=== PATIENT | female | born 1950 | race Caucasian/White ===

== ENCOUNTER 2020-06-08 07:41 | Outpatient (REF) | payer MEDICARE, MEDICAID, SELFPAY ==
[2020-06-08 08:31] LABS: MANUAL DIFF FLAG NO
[2020-06-08 08:38] LABS: Basophils Absolute Auto 0.1 X10*3/uL (0.0-0.2); Basophils Percent Auto 0.8 % (0-2); Eosinophils Absolute Auto 0.2 X10*3/uL (0.0-0.4); Eosinophils Percent Auto 2.1 % (0-4); Hematocrit 42.3 % (37-47); Hemoglobin 13.6 g/dl (12.0-16.0); Imm Gran Abs Auto 0.03 X10*3/uL (0.00-0.03); Imm Gran Pct Auto 0.4 % (0.0-0.4); Lymphocytes Absolute Auto 1.5 X10*3/uL (1.2-4.9); Lymphocytes Percent Auto 21.3 % (20-40); Mean Corpuscular HGB Conc 32.2 g/dl (31.0-35.0); Mean Corpuscular Hemoglobin 26.9 pg (27.0-33.0); Mean Corpuscular Volume 83.8 fL (80-98); Mean Platelet Volume 10.3 fL (9.4-12.3); Monocytes Absolute Auto 0.8 X10*3/uL (0.1-1.2); Monocytes Percent Auto 11.1 % (2-11); Neutrophils Absolute Auto 4.6 X10*3/uL (2.0-8.3); Neutrophils Percent Auto 64.3 % (45-73); Platelet Count 285 X10*3/uL (160-400); Red Blood Count 5.05 X10*6/uL (4.20-5.50); Red Cell Distribution Width 14.6 % (11.0-16.0); White Blood Count 7.1 X10*3/uL (4.8-10.8)
[2020-06-08 08:46] LABS: Estimated Average Glucose 134 mg/dL; Hemoglobin A1c % 6.3 %
[2020-06-08 09:14] LABS: Alanine Aminotransferase 31 U/L (0-31); Albumin Level 4.3 g/dL (3.5-5.0); Alkaline Phosphatase 94 U/L (39-117); Anion Gap 15 (12-20); Aspartate Amino Transferase 27 U/L (5-31); Bilirubin Total 0.7 mg/dL (0.0-1.0); Blood Urea Nitrogen 17 mg/dL (9-16); Calcium 9.3 mg/dL (8.4-10.2); Carbon Dioxide 27 mmol/L (22-29); Chloride 104 mmol/L (96-108); Cholesterol 201 mg/dL; Estimated Glomerular Filt Rate > 60; Glucose Random 98 mg/dL (60-115); HDL Cholesterol 59 mg/dL; LDL Cholesterol Calculated 122 mg/dl; Potassium 4.2 mmol/L (3.3-5.1); Sodium 142 mmol/L (135-145); Total Protein 7.4 g/dL (6.5-8.0); Triglycerides 102 mg/dL
[2020-06-08 09:26] LABS: Free T4 (Free Thyroxine) 1.09 ng/dL (0.71-1.85); Thyroid Stimulating Hormone 1.58 uIU/mL (0.32-4.0); Vitamin D 25-OH Total 31.7 ng/mL (>30)
[2020-06-08 09:58] LABS: Folate > 20.0 ng/mL (> or = 4.0); Vitamin B12 733 pg/mL (200-900)
== END 2020-06-08 07:42 | disposition home or self-care (01) ==
LOC: HO.LAB 07:41
PROVIDERS: PCP Internal Medicine; Visit Provider Internal Medicine
DX: R73.02 Impaired glucose tolerance (oral) (principal); I10 Essential (primary) hypertension; E78.00 Pure hypercholesterolemia, unspecified
CPT/HCPCS: 36415; 80053; 80061; 82306; 82607; 82746; 83036; 84439; 84443; 85025

== ENCOUNTER 2020-10-17 06:11 | Outpatient (REF) | payer MEDICARE, MEDICAID, SELFPAY ==
[2020-10-17 08:11] LABS: MANUAL DIFF FLAG NO
[2020-10-17 08:24] LABS: Basophils Absolute Auto 0.1 X10*3/uL (0.0-0.2); Basophils Percent Auto 0.7 % (0-2); Eosinophils Absolute Auto 0.2 X10*3/uL (0.0-0.4); Eosinophils Percent Auto 1.8 % (0-4); Hematocrit 43.6 % (37-47); Imm Gran Abs Auto 0.03 X10*3/uL (0.00-0.03); Imm Gran Pct Auto 0.4 % (0.0-0.4); Lymphocytes Absolute Auto 1.9 X10*3/uL (1.2-4.9); Lymphocytes Percent Auto 22.4 % (20-40); Mean Corpuscular HGB Conc 32.1 g/dl (31.0-35.0); Mean Corpuscular Hemoglobin 26.2 pg (27.0-33.0); Mean Corpuscular Volume 81.6 fL (80-98); Mean Platelet Volume 11.3 fL (9.4-12.3); Monocytes Absolute Auto 0.9 X10*3/uL (0.1-1.2); Monocytes Percent Auto 10.1 % (2-11); Neutrophils Absolute Auto 5.4 X10*3/uL (2.0-8.3); Neutrophils Percent Auto 64.6 % (45-73); Platelet Count 289 X10*3/uL (160-400); Red Blood Count 5.34 X10*6/uL (4.20-5.50); Red Cell Distribution Width 14.5 % (11.0-16.0); White Blood Count 8.4 X10*3/uL (4.8-10.8)
[2020-10-17 08:38] LABS: Estimated Average Glucose 137 mg/dL; Hemoglobin A1c % 6.4 %
[2020-10-17 09:02] LABS: Alanine Aminotransferase 35 U/L (0-31); Albumin Level 4.4 g/dL (3.5-5.0); Alkaline Phosphatase 86 U/L (39-117); Anion Gap 17 (12-20); Aspartate Amino Transferase 35 U/L (5-31); Bilirubin Total 0.4 mg/dL (0.0-1.0); Blood Urea Nitrogen 15 mg/dL (9-16); Calcium 9.7 mg/dL (8.4-10.2); Carbon Dioxide 22 mmol/L (22-29); Chloride 106 mmol/L (96-108); Estimated Glomerular Filt Rate > 60; Glucose Random 116 mg/dL (60-115); Potassium 4.9 mmol/L (3.3-5.1); Sodium 140 mmol/L (135-145); Total Protein 7.8 g/dL (6.5-8.0)
== END 2020-10-17 06:12 | disposition home or self-care (01) ==
LOC: HO.LAB 06:11
PROVIDERS: PCP Internal Medicine; Visit Provider Internal Medicine
DX: R73.02 Impaired glucose tolerance (oral) (principal)
CPT/HCPCS: 36415; 80053; 83036; 85025

== ENCOUNTER 2020-12-20 11:40 | Outpatient (REF) | payer MEDICARE, MEDICAID, SELFPAY ==
--- NOTE | ~2020-12-20 | MM_ITS ---
EXAMINATION: MM SCREENING DIGITAL BREAST TOMOSYNTHESIS, BILATERAL CLINICAL INFORMATION: Screening. Asymptomatic. The lifetime risk of breast cancer based on the Tyrer-Cuzick Model is 4%. COMPARISON: Mammography: 12/10/2019, 04/28/2018, 04/23/2017 TECHNIQUE: Digital breast tomosynthesis is performed in both the craniocaudal and mediolateral oblique views along with computer-aided detection (CAD). Synthesized 2D images are generated from the tomosynthesis. FINDINGS: There are scattered areas of fibroglandular density (ACR BI-RADS breast composition Category b). There are no significant masses, abnormal calcifications, or other abnormalities. Parenchymal pattern is similar to prior studies. Small intramammary node again seen posterior upper outer left breast. The skin contours are smooth. MM/MM tomosynthesis screening BI IMPRESSION: No mammographic evidence of malignancy. ASSESSMENT: BI-RADS 1: Negative RECOMMENDATION: Routine annual mammography screening. This patient's information was entered into a reminder system with a target due date for their next mammogram.
== END 2020-12-20 11:41 | disposition home or self-care (01) ==
LOC: HO.MAMMO 11:40
PROVIDERS: PCP Internal Medicine; Visit Provider Internal Medicine
DX: Z12.31 Encounter for screening mammogram for malignant neoplasm of breast (principal)
CPT/HCPCS: 77063; 77067

== ENCOUNTER 2021-02-16 12:07 | Outpatient (REF) | payer MEDICARE, MEDICAID, SELFPAY ==
--- NOTE | ~2021-02-16 | XR_ITS ---
EXAMINATION: XR SHOULDER, RIGHT CLINICAL INFORMATION: Pain COMPARISON: None TECHNIQUE: AP external rotation, Grashey, scapular Y, and axillary views of the right shoulder. FINDINGS: Bone alignment is normal. No fracture or dislocation is seen. The glenohumeral joint is normal. There is arthritis at the acromioclavicular joint. There is a small soft tissue calcification adjacent to the greater tuberosity suggestive of calcific tendinitis or bursitis. XR/XR shoulder RT min 2V IMPRESSION: Arthritis at the acromioclavicular joint and small soft tissue calcification adjacent to the greater tuberosity.
== END 2021-02-16 12:08 | disposition home or self-care (01) ==
LOC: HO.XRAY 12:07
PROVIDERS: PCP Internal Medicine; Visit Provider Nurse Practitioner Family
DX: M25.511 Pain in right shoulder (principal)
CPT/HCPCS: 73030

== ENCOUNTER 2021-04-22 04:51 | Emergency (ER) | payer MEDICARE, MEDICAID, SELFPAY ==
--- NOTE | ~2021-04-22 | CT_ITS ---
EXAMINATION: CT HEAD WITHOUT CONTRAST CLINICAL INFORMATION: Trauma COMPARISON: October 09, 2013 TECHNIQUE: Contiguous axial imaging was performed from the skull base to vertex without intravenous administration of contrast. This CT examination was performed using dose optimization techniques as appropriate, variously including the following: *Automated exposure control *Adjustment of mA and/or kV according to patient size (this includes techniques or standardized protocols for targeted exams where dose is matched to indication/reason for exam; i.e. extremities or head) *Use of iterative reconstruction technique DLP: 668.87 mGy-cm FINDINGS: There is no evidence of acute intracranial hemorrhage or territorial infarction. No abnormal mass effect or midline shift is seen. Hdez to white matter differentiation is well preserved. No extra-axial fluid collections are identified. The ventricles are normal in size. There is no abnormal attenuation within the brain parenchyma. The osseous structures are normal. The mastoid air cells and visualized portions of the paranasal sinuses are well aerated. There is some edema and linn seen about the right posterior parietal/occipital region. CT/CT head/brain wo con IMPRESSION: No acute intracranial pathology.
--- NOTE | ~2021-04-22 | CT_ITS ---
EXAMINATION: CT CERVICAL SPINE WITHOUT CONTRAST CLINICAL INFORMATION: Trauma. COMPARISON: None TECHNIQUE: Helical CT scan of the cervical spine was obtained without administration of any contrast. Multiplanar reconstructed images were also obtained. This CT examination was performed using dose optimization techniques as appropriate, variously including the following: *Automated exposure control *Adjustment of mA and/or kV according to patient size (this includes techniques or standardized protocols for targeted exams where dose is matched to indication/reason for exam; i.e. extremities or head) *Use of iterative reconstruction technique DLP: 460.20 mGy-cm FINDINGS: Nonspecific straightening of the cervical spine is noted with superimposed moderate multilevel degenerative spondylosis. Facet joint arthritic changes are noted bilaterally. Osteoarthrosis is noted at the atlantoaxial joint. Uncovertebral hypertrophic changes are also present. There is no evidence of acute cervical spine fracture. Vertebral bodies remain normal in height, intervertebral disc spaces are preserved, and alignment is anatomic. No prevertebral or paravertebral soft tissue abnormality is identified. Limited assessment of the lung apices is unremarkable. Incidental note is made of multinodular left lobe of the thyroid gland. CT/CT cervical spine wo con IMPRESSION: No CT evidence of acute cervical spine fracture or traumatic subluxation. Multinodular left lobe of the thyroid gland.
--- NOTE | ~2021-04-22 | XR_ITS ---
EXAMINATION: XR ELBOW, LEFT CLINICAL INFORMATION: Trauma. COMPARISON: None TECHNIQUE: AP, lateral, and oblique views of the left elbow. FINDINGS: The bony alignments are intact. The cortices are intact. Mild osteoarthrosis is noted at the humeroulnar joint. Incidental note is made of subtle focal expansile nonaggressive lesion involving the proximal part of the left radius. Soft tissues are unremarkable. No evidence of any effusion. XR/XR elbow LT min 3V IMPRESSION: 1. No radiographic evidence of any displaced fracture, subluxation or dislocation is seen at the left elbow. 2. Incidental note is made of mild osteoarthrosis of the humeroulnar joint. 3. Indeterminate subtle focal expansile nonaggressive lesion involving the proximal part of the left radius. Clinical, lab correlation as well as follow-up imaging as appropriate is recommended.
[2021-04-22 04:53] VITALS: BP 153/84; PULSE 83; RESP 16; TEMP 36.8; O2SAT 99; BMI 31.3
--- NOTE | 2021-04-22 07:40 | ED_ITS ---
HPI - Head Injury General Chief complaint: Fall Stated complaint: fall head inj Time Seen by Provider: 04/22/21 06:48 Source: patient Limitations: no limitations History of Present Illness HPI Narrative: this is a 70 years old the female was changing a light bulb at 04:00 a fell to the ground she is complaining of headache she sustained a laceration on the scalp, she denies any neck pain chest wall pain abdominal pain, no L MD Complaint: head injury Onset (ago): hour(s) (4) Mechanism of Injury: fall Place: home Loss of Consciousness: no Location of injury: parietal Radiation: none Other Injuries: laceration (scalp) Related Data Home Medications Medication Instructions Recorded Confirmed aspirin 81 mg tablet,delayed 81 mg PO DAILY 02/03/20 02/16/21 release (Adult Aspirin Regimen) Previous Rx's Medication Instructions Recorded fexofenadine 180 mg tablet 180 mg PO DAILY 90 Days #90 tab 07/26/20 (Allergy Relief (fexofenadine)) omeprazole 20 mg capsule,delayed 20 mg PO DAILY #90 cap 10/31/20 release ibuprofen 600 mg tablet 600 mg PO Q8H PRN #15 tab 02/16/21 simvastatin 5 mg tablet 5 mg PO BEDTIME #90 tab 03/12/21 baclofen 10 mg tablet 10 mg PO TID PRN #60 tab 03/20/21 lisinopril 5 mg tablet 5 mg PO DAILY #90 tab 04/12/21 Allergies Allergy/AdvReac Type Severity Reaction Status Date / Time No Known Allergies Allergy Verified 02/16/21 11:31 Review of Systems Verdana 4l Constitutional: Verdana 4d Constitutional: Verdana 4d Verdana 4d Reports no additional constitutional complaints Verdana 4l ENT: Verdana 4d Reports system reviewed and no additional complaints, except as documented Verdana 4l Respiratory: Verdana 4d Verdana 4d Respiratory: Verdana 4d Reports no additional respiratory complaints Verdana 4l Gastrointestinal: Verdana 4d Gastrointestinal: Verdana 4d Verdana 4d Reports no additional gastrointestinal complaints Verdana 4l Musculoskeletal: Verdana 4d Musculoskeletal: Verdana 4d Verdana 4d Reports no additional musculoskeletal complaints Verdana 4l Integumentary/Breasts: Verdana 4d Skin/Breast: Verdana 4d Verdana 4d Reports system reviewed and no additional complaints, except as docu PMFSH Past Medical History Medical History Allergic rhinitis Fatty liver GERD (gastroesophageal reflux disease) Hypercholesterolemia Hypertension Impaired glucose tolerance Migraine Obesity (BMI 30-39.9) Family History Family History Mother No problems noted. Father No problems noted. Social History Social History Housing: Apartment Alcohol intake: never Patient Tobacco Use Status: Never used Tobacco e-Cigarette/Vaping Use: Never Used Second Hand Smoke Exposure: No Use of substances other than those prescribed or required for medical reasons: No Advance Directives: No Advance Directives Information Provided: No service: No Current occupational status: unemployed Physical Exam Verdana 4l Vital Signs: Verdana 4d Verdana 4d Vital Signs: Verdana 4d Verdana 4Bd Last Vital Signs Verdana 4d [employer] Helper New 4d [employer] Helper New 4d Temp 98.7 F 04/22/21 08:10 [employer] Helper New 4d Pulse 78 04/22/21 08:10 [employer] Helper New 4d Resp 14 04/22/21 08:10 BP 150/83 H 04/22/21 08:10 Pulse Ox 99 04/22/21 08:10 BMI result Body Mass Index 31.3 she looks well she is not in distress HENMT: Other: examination the head eyes nose mouth throat showed laceration of 2 cm in the right parietal area Face and sinus: Yes normal facial exam Neck: Neck: Yes normal visual inspection and Yes full ROM Chest: Chest palpation & inspection: normal inspection of the chest Resp: Effort & Inspection: normal respiratory effort Auscultation: clear to auscultation bilaterally Cardio: Jugular venous distension: no JVD Rate: regular rate Rhythm: regular rhyth m GI: Inspection: Yes normal to inspection Palpation (GI): Soft to palpation, not firm, nontender and no guarding Auscultation: normal bowel sounds Skin: General skin exam: no rashes or lesions noted and elasticity normal Lesions: no lesions MDM - Head Injury Imaging Data CT scan - head: My impression: ?including the following: *Automated exposure control *Adjustment of mA and/or kV according to patient size (this includes techniques or standardized protocols for targeted exams where dose is matched to indication/reason for exam; i.e. extremities or head) *Use of iterative reconstruction technique DLP: 668.87 mGy-cm FINDINGS: There is no evidence of acute intracranial hemorrhage or territorial infarction. No abnormal mass effect or midline shift is seen. Hdez to white matter differentiation is well preserved. No extra-axial fluid collections are identified. The ventricles are normal in size. There is no abnormal attenuation within the brain parenchyma. The osseous structures are normal. The mastoid air cells and visualized portions of the paranasal sinuses are well aerated. There is some edema and linn seen about the right posterior parietal/occipital region. ? CT/CT head/brain wo con IMPRESSION: No acute intracranial pathology. Dictated By: Trung Swift MD Signed By: <Electronically signed by Trung Swift MD in OV> 04/22/21826 DD/ 2 ct Cspine: Radiologist's impression: extremities or head) *Use of iterative reconstruction technique DLP: 460.20 mGy-cm FINDINGS: Nonspecific straightening of the cervical spine is noted with superimposed moderate multilevel degenerative spondylosis. Facet joint arthritic changes are noted bilaterally. Osteoarthrosis is noted at the atlantoaxial joint. Uncovertebral hypertrophic changes are also present. There is no evidence of acute cervical spine fracture. Vertebral bodies remain normal in height, intervertebral disc spaces are preserved, and alignment is anatomic. No prevertebral or paravertebral soft tissue abnormality is identified. Limited assessment of the lung apices is unremarkable. Incidental note is made of multinodular left lobe of the thyroid gland. CT/CT cervical spine wo con IMPRESSION: No CT evidence of acute cervical spine fracture or traumatic subluxation. ? Multinodular left lobe of the thyroid gland. Dictated By: CHAPO SPIVEY Procedures Laceration Laceration 1: Site: scalp Side (If applicable): right Size (cm): 2 Description: linear Depth: simple, single layer Local Anesthetic: lidocaine 1% Amount of anesthesia used (mL): 2 Skin layer closed with: other (linn) Discharge Plan Discharge Clinical Impression: Head injury, Laceration of scalp Patient Disposition: Home, Self-Care Instructions: Laceration (DC), Head Injury (ED) Additional Instructions: staple should come out in about 7 days he did by your primary care physician or return to the ED Prescriptions: No Action aspirin [Adult Aspirin Regimen] 81 mg tablet,delayed release (DR/EC) 81 mg PO DAILY 0RF fexofenadine [Allergy Relief (fexofenadine)] 180 mg tablet 180 mg PO DAILY 90 Days Qty: 90 2RF omeprazole 20 mg capsule,delayed release(DR/EC) 20 mg PO DAILY Qty: 90 2RF simvastatin 5 mg tablet 5 mg PO BEDTIME Qty: 90 1RF baclofen 10 mg tablet 10 mg PO TID PRN (Reason: muscle spasm) Qty: 60 1RF lisinopril 5 mg tablet 5 mg PO DAILY Qty: 90 2RF ibuprofen 600 mg tablet 600 mg PO Q8H PRN (Reason: pain) Qty: 15 0RF Referrals: Po,Andrea Levin MD [Primary Care Provider] - 5 days
[2021-04-22] MEDS: Lidocaine HCl 1 % MPF 5 ML VIAL INFILTRATI (07:44)
[2021-04-22 08:10] VITALS: BP 150/83; PULSE 78; RESP 14; TEMP 37.1; O2SAT 99
== END 2021-04-22 08:46 | disposition home or self-care (01) ==
PROVIDERS: Emergency Provider Emergency Medicine; PCP Internal Medicine
DX: S09.90XA Unspecified injury of head, initial encounter (principal); S01.01XA Laceration without foreign body of scalp, initial encounter; W07.XXXA Fall from chair, initial encounter; Y93.E9 Activity, other interior property and clothing maintenance; Y92.039 Unspecified place in apartment as the place of occurrence of the external cause; Y99.9 Unspecified external cause status
CPT/HCPCS: 12001; 70450; 72125; 73080; 99284

== ENCOUNTER → 2021-05-09 10:42 | Outpatient (BNVA) | payer MEDICARE, MEDICAID, SELFPAY | PROVIDERS: PCP Internal Medicine; Visit Provider Physician Assistant | DX: M75.101 Unspecified rotator cuff tear or rupture of right shoulder, not specified as traumatic (principal) | CPT/HCPCS: 99212; J1020 ==

== ENCOUNTER → 2021-06-20 12:25 | Outpatient (BNVA) | payer MEDICARE, MEDICAID, SELFPAY | PROVIDERS: PCP Internal Medicine; Visit Provider Physician Assistant | DX: M75.51 Bursitis of right shoulder (principal); M75.101 Unspecified rotator cuff tear or rupture of right shoulder, not specified as traumatic | CPT/HCPCS: 99212 ==

== ENCOUNTER 2021-12-22 11:23 | Outpatient (REF) | payer MEDICARE, MEDICAID, SELFPAY ==
--- NOTE | ~2021-12-22 | MM_ITS ---
EXAMINATION: MM SCREENING DIGITAL BREAST TOMOSYNTHESIS, BILATERAL CLINICAL INFORMATION: Screening. Asymptomatic. The lifetime risk of breast cancer based on the Tyrer-Cuzick Model is 4%. COMPARISON: Mammography: 12/20/2020, 12/10/2019, 04/28/2018 TECHNIQUE: Digital breast tomosynthesis is performed in both the craniocaudal and mediolateral oblique views along with computer-aided detection (CAD). Synthesized 2D images are generated from the tomosynthesis. Additional right CC view is provided. FINDINGS: There are scattered areas of fibroglandular density (ACR BI-RADS breast composition Category b). There are no significant masses, abnormal calcifications, or other abnormalities. No developing density or architectural abnormality. Parenchymal pattern similar to prior studies. No significant changes. MM/MM tomosynthesis screening BI IMPRESSION: No mammographic evidence of malignancy. ASSESSMENT: BI-RADS 1: Negative RECOMMENDATION: Routine annual mammography screening. This patient's information was entered into a reminder system with a target due date for their next mammogram.
== END 2021-12-22 11:24 | disposition home or self-care (01) ==
LOC: HO.MAMMO 11:23
PROVIDERS: Visit Provider Internal Medicine
DX: Z12.31 Encounter for screening mammogram for malignant neoplasm of breast (principal)
CPT/HCPCS: 77063; 77067

== ENCOUNTER 2022-04-13 09:10 | Outpatient (REF) | payer MEDICARE, MEDICAID, SELFPAY ==
[2022-04-13 09:20] LABS: MANUAL DIFF FLAG NO
[2022-04-13 11:02] LABS: Basophils Absolute Auto 0.1 X10*3/uL (0.0-0.2); Eosinophils Absolute Auto 0.1 X10*3/uL (0.0-0.4); Eosinophils Percent Auto 1.5 % (0-4); Hematocrit 45.1 % (37.0-47.0); Hemoglobin 14.5 g/dl (12.0-16.0); Imm Gran Abs Auto 0.03 X10*3/uL (0.00-0.03); Imm Gran Pct Auto 0.4 % (0.0-0.4); Lymphocytes Absolute Auto 2.1 X10*3/uL (1.2-4.9); Lymphocytes Percent Auto 25.3 % (20-40); Mean Corpuscular HGB Conc 32.2 g/dl (31.0-35.0); Mean Corpuscular Hemoglobin 26.6 pg (27.0-33.0); Mean Corpuscular Volume 82.8 fL (80.0-98.0); Mean Platelet Volume 11.5 fL (9.4-12.3); Monocytes Absolute Auto 0.8 X10*3/uL (0.1-1.2); Monocytes Percent Auto 10.2 % (2-11); Neutrophils Absolute Auto 5.1 x10*3/uL (2.0-8.3); Neutrophils Percent Auto 61.6 % (45-73); Platelet Count 226 X10*3/uL (160-400); Red Blood Count 5.45 X10*6/uL (4.20-5.50); Red Cell Distribution Width 14.6 % (11.0-16.0); White Blood Count 8.3 X10*3/uL (4.8-10.8)
[2022-04-13 11:19] LABS: Estimated Average Glucose 137 mg/dL; Hemoglobin A1c % 6.4 %
[2022-04-13 12:17] LABS: Alanine Aminotransferase 31 U/L (0-31); Albumin Level 4.3 g/dL (3.5-5.0); Alkaline Phosphatase 80 U/L (39-117); Anion Gap 17 (12-20); Aspartate Amino Transferase 27 U/L (5-31); Bilirubin Total 0.5 mg/dL (0.0-1.0); Blood Urea Nitrogen 16 mg/dL (9-16); Calcium 9.8 mg/dL (8.4-10.2); Carbon Dioxide 23 mmol/L (22-29); Chloride 104 mmol/L (96-108); Cholesterol 229 mg/dL; Estimated Glomerular Filt Rate > 60; Glucose Random 84 mg/dL (60-115); HDL Cholesterol 55 mg/dL; LDL Cholesterol Calculated 154 mg/dl; Potassium 4.1 mmol/L (3.3-5.1); Sodium 140 mmol/L (135-145); Total Protein 7.3 g/dL (6.5-8.0); Triglycerides 103 mg/dL
[2022-04-13 12:23] LABS: Thyroid Stimulating Hormone 1.45 uIU/mL (0.32-4.0); Vitamin D 25-OH Total 47.3 ng/mL (>30)
[2022-04-13 12:33] LABS: Folate 18.3 ng/mL (> or = 4.0); Vitamin B12 > 2000 pg/mL (200-900)
== END 2022-04-13 09:11 | disposition home or self-care (01) ==
LOC: HO.LAB 09:10
PROVIDERS: PCP Internal Medicine; Visit Provider Internal Medicine
DX: R73.02 Impaired glucose tolerance (oral) (principal); E78.00 Pure hypercholesterolemia, unspecified
CPT/HCPCS: 36415; 80053; 80061; 82306; 82607; 82746; 83036; 84439; 84443; 85025

== ENCOUNTER 2022-04-24 09:49 | Outpatient (REF) | payer MEDICARE, MEDICAID, SELFPAY ==
--- NOTE | ~2022-04-24 | MM_ITS ---
EXAMINATION: BONE DENSITOMETRY CLINICAL INDICATION: Age-related osteoporosis without current pathological fracture. COMPARISON: Previous BD dated 01/31/2016 and baseline BD dated 12/27/2006. TECHNIQUE: Using a hereO DXA System (software version: 13.1) manufactured by [employer], dual-energy x-ray absorptiometry was performed of the lumbar spine and left hip. The images are of good technical quality. Summary results are attached. FINDINGS: AP SPINE L1-L4: Current: BMD 1.330 g/cm2, Z-score 2.0, T-score 1.2, normal, 1.4% increase from previous, 5.1% increase from baseline (<5% change is not significant). Prior: BMD 1.312 g/cm2. Baseline: BMD 1.266 g/cm2. LEFT FEMUR, NECK: Current: BMD 1.209 g/cm2, Z-score 2.4, T-score 1.2, normal. Prior: BMD 1.209 g/cm2. Baseline: BMD 1.201 g/cm2. LEFT FEMUR, TOTAL: Current: BMD 1.230 g/cm2, Z-score 2.6, T-score 1.8, normal, 0.8% decrease from previous, 2.3% decrease from baseline (<5% change is not significant). Prior: BMD 1.240 g/cm2. Baseline: BMD 1.259 g/cm2. IDENTIFIED RISK FACTORS: Menopause. HISTORY OF FRACTURE: None listed. MEDICATIONS: Multivitamin. Vitamin D. MM/XR DEXA axial skeleton IMPRESSION: 1. DIAGNOSIS: Normal bone density based on the lowest T-score value of 1.2 in the lumbar spine and femoral neck applying World Health Organization criteria. 2. 10-YEAR FRACTURE RISK PREDICTION, FRAX: According to the guidelines, FRAX calculation should only be performed on patients in the osteopenia bone density category. Therefore, FRAX was not performed on this patient.? 3. Treatment Recommendations: NOF guidelines recommend consideration for treatment in postmenopausal women and men age 50 and older presenting with the following: -A hip or vertebral (clinical or morphometric) fracture. -T-score less than or equal to -2.5 at the femoral neck or spine after appropriate evaluation to exclude secondary causes. -Low bone mass at the hip or spine and a 10-year fracture probability by FRAX of greater than or equal to 3% for hip fracture or greater than or equal to 20% for major osteoporotic fracture based on the [place] adapted WHO algorithm. 4. Other Recommendations: All treatment decisions require clinical judgment and consideration of individual patient factors, including patient preferences, comorbidities, previous drug use, risk factors not captured in the FRAX model (e.g. frailty, falls, vitamin D deficiency, increased bone turnover, interval significant decline in bone density) and possible under or overestimation of fracture risk by FRAX. FUTURE SCAN RECOMMENDATION: People with diagnosed cases of osteoporosis or at high risk for fracture should have regular bone mineral density tests. For patients eligible for Medicare, routine testing is allowed once every 2 years. The testing frequency can be increased to one year for patients who have rapidly progressing disease, those who are receiving or discontinuing medical therapy to restore bone mass, or have additional risk factors.
== END 2022-04-24 09:50 | disposition home or self-care (01) ==
LOC: HO.MAMMO 09:49
PROVIDERS: PCP Internal Medicine; Visit Provider Internal Medicine
DX: Z13.820 Encounter for screening for osteoporosis (principal); Z78.0 Asymptomatic menopausal state; M81.0 Age-related osteoporosis without current pathological fracture
CPT/HCPCS: 77080

== ENCOUNTER → 2022-06-25 10:38 | Outpatient (BNVA) | payer MEDICARE, MEDICAID, SELFPAY | PROVIDERS: PCP Internal Medicine; Visit Provider Physician Assistant | DX: Z01.818 Encounter for other preprocedural examination (principal); K59.00 Constipation, unspecified | CPT/HCPCS: 99202 ==

== ENCOUNTER 2022-07-02 06:57 | Outpatient (REF) | payer MEDICARE, MEDICAID, SELFPAY ==
[2022-07-02 07:50] LABS: Estimated Average Glucose 134 mg/dL; Hemoglobin A1c % 6.3 %
[2022-07-02 08:04] LABS: Alanine Aminotransferase 30 U/L (0-31); Albumin Level 4.4 g/dL (3.5-5.0); Alkaline Phosphatase 90 U/L (39-117); Anion Gap 9 (12-20); Aspartate Amino Transferase 25 U/L (5-31); Bilirubin Total 0.6 mg/dL (0.0-1.0); Blood Urea Nitrogen 18 mg/dL (9-16); Calcium 9.6 mg/dL (8.4-10.2); Carbon Dioxide 32 mmol/L (22-29); Chloride 104 mmol/L (96-108); Cholesterol 219 mg/dL; Estimated Glomerular Filt Rate > 60; Glucose Random 102 mg/dL (60-115); HDL Cholesterol 67 mg/dL; LDL Cholesterol Calculated 135 mg/dl; Potassium 4.3 mmol/L (3.3-5.1); Sodium 141 mmol/L (135-145); Total Protein 7.1 g/dL (6.5-8.0); Triglycerides 88 mg/dL
== END 2022-07-02 06:58 | disposition home or self-care (01) ==
LOC: HO.LAB 06:57
PROVIDERS: PCP Internal Medicine; Visit Provider Internal Medicine
DX: R73.02 Impaired glucose tolerance (oral) (principal); E78.00 Pure hypercholesterolemia, unspecified
CPT/HCPCS: 36415; 80053; 80061; 83036

== ENCOUNTER 2022-10-09 11:01 | Day surgery (SDC) | payer MEDICARE, MEDICAID, SELFPAY ==
[2022-10-05 16:26] VITALS: BMI 30.7
--- NOTE | 2022-10-08 10:31 | HO.ANESPROP2 ---
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 Father No problems noted. Other Substance use Surgical History Surgical History Hx of colonoscopy Hx of varicose vein ligation Social History Social History Housing: Apartment Alcohol intake: never Patient Tobacco Use Status: Never used Tobacco e-Cigarette/Vaping Use: Never Used Second Hand Smoke Exposure: No Use of substances other than those prescribed or required for medical reasons: No Are you DNR?: No Advance Directives: No Advance Directives Information Provided: Yes service: No Current occupational status: unemployed Cognitive needs: No Hearing needs: No Vision needs: Yes Meds Allergies Allergy/AdvReac Type Severity Reaction Status Date / Time No Known Allergies Allergy Verified 10/09/22 11:23 Home Medications Medication Instructions Recorded Confirmed Last Taken Type aspirin 81 mg tablet,delayed 81 mg PO DAILY 06/15/22 10/09/22 10/07/22 History release (Adult Aspirin Regimen) Exam Exam Date and Time: October 08, 2022 1031 Height,Weight and Vital Signs: Height 5 ft 6 in Weight 86.183 kg Pertinent Lab Results Pertinent Lab Results: Laboratory Tests 04/13/22 07/02/22 09:19 07:04 WBC 8.3 Hgb 14.5 Hct 45.1 Plt Count 226 Sodium 141 Potassium 4.3 Chloride 104 Carbon Dioxide 32 H BUN 18 H Creatinine 0.82 Assessment and Plan Assessment Anesthesia Assessment: Chart Reviewed Documented by User: Michelle Ramos MD 10/09/22 13:06 PMF Active Problems Active Problems: All Active Problems (Updated 07/10/22 @ 11:55 by Michelle Ramos MD) Localized anaphylaxis (Acute) Insomnia (Acute) Colon cancer screening (Acute) Constipation (Acute) COVID-19 virus infection (Acute) Annual physical exam (Acute) Peripheral vascular disease (Acute) 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 (Acute)- better post injections Hypertension (Acute) Hypercholesterolemia (Acute) Impaired glucose tolerance (Acute) Obesity (BMI 30-39.9) (Acute) GERD (gastroesophageal reflux disease) (Acute)- No N/V Denies EDA Past Medical History Medical History (Updated 10/09/22 @ 13:04 by Michelle Ramos MD) Allergic rhinitis Encounter for removal of linn Fatty liver GERD (gastroesophageal reflux disease) Hospital discharge follow-up Hypercholesterolemia Hypertension Impaired glucose tolerance Left shoulder tendinitis Migraine Obesity (BMI 30-39.9) Right shoulder pain Family History Family History Mother No problems noted. Father No problems noted. Other Substance use Family history of problems with anesthesia: No Surgical History Surgical History Hx of colonoscopy Hx of varicose vein ligation History of Problems with Anesthesia: No Social History Social History Housing: Apartment Alcohol intake: never Patient Tobacco Use Status: Never used Tobacco e-Cigarette/Vaping Use: Never Used Second Hand Smoke Exposure: No Use of substances other than those prescribed or required for medical reasons: No Are you DNR?: No Advance Directives: No Advance Directives Information Provided: Yes service: No Current occupational status: unemployed Cognitive needs: No Hearing needs: No Vision needs: Yes Meds Allergies Allergy/AdvReac Type Severity Reaction Status Date / Time No Known Allergies Allergy Verified 10/09/22 11:23 Home Medications Medication Instructions Recorded Confirmed Last Taken Type aspirin 81 mg tablet,delayed 81 mg PO DAILY 06/15/22 10/09/22 10/07/22 History release (Adult Aspirin Regimen) Exam Height,Weight and Vital Signs: Height 5 ft 6 in Weight 86.183 kg Vital Signs Temp Pulse Resp BP Pulse Ox O2 Del Method 10/09/22 11:42 97.5 F 83 16 145/76 H 96 Room Air Airway Mallampati Class: II TM Dist: >3cm Neck ROM: Full Partial: Upper and Lower Loose/Missing/Broken Teeth: Yes (Denies broken or loose teeth) Heart: RRR Lungs: CTAB Assessment and Plan Assessment Anesthesia Assessment: Anesthesia Plan Discussed Final Anesthetic Review Family History of Problems with Anesthesia: No History of Problems with Anesthesia: No NPO: Yes ASA Class: II Final Preanesthetic Review: No Changes in Pt Med Stat, Meds/Allgs Chart Reviewed, Consent Obtained/Reviewed and Anes Risks/Benef Reviewed Patient Risk: Low Procedure Risk: Low Assessment/Block/Sedation in SS: Assess/Block/Sedation-SS Anesthetic Plan Anesthetic Plan: MAC: Disposition: Standard PACU
[2022-10-09 11:42] VITALS: BP 145/76; PULSE 83; RESP 16; TEMP 36.4; O2SAT 96
[2022-10-09] MEDS: Lactated Ringers 1,000 ML 100 ML IVCONT (11:54)
--- NOTE | 2022-10-09 12:00 | P.HPSUR_ITS ---
Pre-Procedural Eval Section A Date of Service: 10/09/22 The patient is an INPATIENT: No The History & Physical has been completed within 30 days and I have reviewed it.: No Section B Chief Complaint: Screening, Constipation, Relevant Family History (Specify if Yes): No Relevant Social History: None Present Medications: see Short Stay Collaborative assessment Medical History: Significant History (Allergic rhinitis Encounter for removal of linn Fatty liver GERD (gastroesophageal reflux disease) Hospital discharge follow-up Hypercholesterolemia Hypertension Impaired glucose tolerance Left shoulder tendinitis Migraine Obesity (BMI 30-39.9)) History of Previous Operations: Relevant previous surgery/procedure and date(s) (History of colonoscopy, history of varicose vein ligation) Allergies: Allergies Allergy/AdvReac Type Severity Reaction Status Date / Time No Known Allergies Allergy Verified 10/09/22 11:23 Review of Systems Sugical H&P ROS: Negative: Constitution, Cardiovascular, Respiratory and Ga strointestinal Exam Surgical H&P Exam: Normal: Heart, Normal: Lungs, Normal: Extremities and Normal: Abdomen Plan Diagnosis/Plan: Change (proceed with screening colonoscopy) I have reviewed the history and physical and performed a pertinent physical examination on my patient. No changes have occurred unless specified. Time Spent With Patient Time: Total time managing care of this patient today ____ minutes.
--- NOTE | 2022-10-09 13:56 | W.PM.OPN ---
Operative Note Operative Note Date of Service: 10/09/22 Narrative: COLONOSCOPY TILL CECUM WITH BIOPSIES Pre-op diagnosis: colon cancer screening, chronic constipation Post-op diagnosis:? colon polyp, diverticulosis, melanosis coli Endoscopist:? Chip Weiss MD Anesthesia:?MAC Consent: Indications for the procedure and potential complications of bleeding, perforation, reaction to medications and missed diagnosis were discussed with the patient and informed consent was obtained. Instrument: Olympus PCF H 190 L variable stiffness pediatric colonoscope Monitoring: Vital signs and clinical assessment, intermittent blood pressure monitoring, continuous EKG monitoring, Pulse oximetry and Carbon Dioxide monitoring were done throughout the procedure. Please see anesthesia flowsheet. Colon withdrawl time was 16 minutes. Procedure: The patient was placed in the left lateral decubitis position and pre-procedure medications were administered. After a digital rectal examination of the ano-rectum, the video colonoscope was inserted into the rectum and advanced through the colon to the cecum. The colonoscope was slowly withdrawn in a retrograde panoramic fashion and the colon mucosa was carefully examined including a retroflexed view of the rectum. Findings and interventions are described below. Procedure Difficulty: Colon was long and there was some loop formation. LLQ pressure applied to intubate the cecum Findings: Terminal Ileum: Not evaluated Cecum: Normal Ascending Colon: Mild melanosis coli throughout the colon - random biopsies were obtained. Transverse Colon: Mild melanosis coli throughout the colon - random biopsies were obtained. Descending Colon: A 7-8 mm diminutive appearing polyp - removed with a cold bx Mild melanosis coli throughout the colon - random biopsies were obtained. Sigmoid Colon: Mild melanosis coli throughout the colon - random biopsies were obtained. Moderate diverticulosis Rectum: Normal Ano-rectum: Farrah-anal skin tags Colon preparation: Good Impression and Post Procedure Diagnosis: Colonoscopy Findings: One diminutive appearing polyp removed Moderate diverticulosis seen in the sigmoid colon Plan: Await pathology results Patient has an appointment on 10/24/22 in the GI Clinic with ALEXANDRE Pinon . Repeat Colonoscopy interval based on path results - in 5 years if polyps are adenomatous and 10 years if polyps are hyperplastic. Above findings were reviewed with the patient and colon polyps and diverticulosis handouts were given in the discharge area
[2022-10-09 13:58] VITALS: BP 112/69; PULSE 82; RESP 18; TEMP 36.6; O2SAT 98
[2022-10-09 14:13] VITALS: BP 128/87; PULSE 81; RESP 18; TEMP 36.3; O2SAT 97
== END 2022-10-09 15:04 | disposition home or self-care (01) ==
PROVIDERS: PCP Internal Medicine; Visit Provider Internal Medicine Gastroenterology
PROC: 0DJD8ZZ Inspection of Lower Intestinal Tract, Via Natural or Artificial Opening Endoscopic (ICD-10-PCS; CPT 45378; principal; 2022-10-09 13:50)
DX: Z12.11 Encounter for screening for malignant neoplasm of colon (principal); K63.89 Other specified diseases of intestine; K57.30 Diverticulosis of large intestine without perforation or abscess without bleeding; K64.4 Residual hemorrhoidal skin tags; K59.00 Constipation, unspecified; I10 Essential (primary) hypertension; E78.00 Pure hypercholesterolemia, unspecified; K21.9 Gastro-esophageal reflux disease without esophagitis; E66.9 Obesity, unspecified; Z68.30 Body mass index [BMI] 30.0-30.9, adult; Z79.82 Long term (current) use of aspirin
CPT/HCPCS: 45380; 88305

== ENCOUNTER → 2022-10-09 11:01 | Outpatient (BNV) | payer MEDICARE, MEDICAID, SELFPAY | PROVIDERS: PCP Internal Medicine; Visit Provider Internal Medicine Gastroenterology | DX: Z12.11 Encounter for screening for malignant neoplasm of colon (principal); K59.04 Chronic idiopathic constipation; D12.4 Benign neoplasm of descending colon; K63.89 Other specified diseases of intestine | CPT/HCPCS: 45380 ==

== ENCOUNTER 2022-10-24 11:56 | Outpatient (AMB) | payer MEDICARE, MEDICAID, SELFPAY ==
[2022-10-24 12:03] VITALS: BP 128/68; PULSE 88; BMI 33.6
--- NOTE | 2022-10-24 12:03 | MHC.OFFVIS ---
Intake Vital Signs 10/24/22 12:03 Height 5 ft 6 in Weight 208 lb BMI 33.6 BP 128/68 Blood Pressure Location Lt brachial Position Sitting Pulse 88 Intake Visit Reasons: S/p colon- Abhishek Intake Note: Patient follow up for Colonoscopy results. Patient denies any GI issues. 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 Accompanied by: Daughter Allergies No Known Allergies Allergy (Verified 10/24/22 12:02) Medication List - Last Reconciled 10/24/22 by Teena Childress PA-C aspirin (Adult Aspirin Regimen) 81 mg PO DAILY baclofen 10 mg PO TID PRN blood pressure monitor (Blood Pressure Kit) As directed fexofenadine (Allergy Relief (fexofenadine)) 180 mg PO DAILY 90 days lisinopril 10 mg PO DAILY 30 days methylcellulose (laxative) (Citrucel) 500 mg PO TID omeprazole 20 mg PO DAILY sennosides-docusate sodium 8.6-50 mg (Senna Plus) 2 tab-caps (2 x 8.6-50 mg) PO BEDTIME PRN 30 days simvastatin 10 mg PO BEDTIME 30 days HPI HPI Comments History of Present Illness Details A 72 y/o female with chronic constipation f/u after colonoscopy-her daughter is present and director of medical staff services where needed She tolerated procedure well She does have constipation follows with some regimen however would like it to be better. Her appetite is good no complaint Reviewed procedure report No nausea, vomiting, hematemesis, fever chills PFSH Medical History (Updated 10/24/22 @ 12:13 by Teena Childress PA-C) Allergic rhinitis Encounter for removal of linn Fatty liver GERD (gastroesophageal reflux disease) Hospital discharge follow-up Hypercholesterolemia Hypertension Impaired glucose tolerance Left shoulder tendinitis Migraine Obesity (BMI 30-39.9) Right shoulder pain Surgical History Hx of colonoscopy Hx of varicose vein ligation Family History Mother No problems noted. Father No problems noted. Other Substance use Social History Housing: Apartment Alcohol intake: never Patient Tobacco Use Status: Never used Tobacco e-Cigarette/Vaping Use: Never Used Second Hand Smoke Exposure: No service: No Current occupational status: unemployed Cognitive needs: No Hearing needs: No Vision needs: Yes Review of Systems Const All systems reviewed & are unremarkable except as noted in HPI and below Card Denies chest pain and Denies dyspnea Resp Denies dyspnea GI Denies abdominal pain, Denies hematochezia, Reports constipation, Denies diarrhea and Denies vomiting Physical Exam Vital Signs: Last Vital Signs Pulse 88 10/24/22 12:03 BP 128/68 10/24/22 12:03 BMI result Body Mass Index 33.6 Const General: cooperative, healthy appearing, comfortable, no acute distress and well developed Orientation/consciousness: patient oriented x3 Limitations: language barrier Resp Effort & Inspection: normal respiratory effort and able to speak in complete sentences Skin General skin exam: no rashes or lesions noted Neuro General: patient oriented x3 Extrem General: Yes full ROM Psych Appearance: grossly normal and well kempt Mental Status: mental status grossly normal Speech and movement: Normal speech and movement present and Clear speech present Affect: normal affect Attitude: cooperative Thought content: Normal thought content present Insight: Good insight present (Psych) Judgement: Good judgement present (Psych) Results Reviewed Results Reviewed: indings: Terminal Ileum: Not evaluated Cecum:? Normal Ascending Colon:? Mild melanosis coli throughout the colon - random biopsies were obtained. Transverse Colon:? Mild melanosis coli throughout the colon - random biopsies were obtained. Descending Colon:? A 7-8 mm diminutive appearing polyp - removed with a cold bx Mild melanosis coli throughout the colon - random biopsies were obtained. Sigmoid Colon:? Mild melanosis coli throughout the colon - random biopsies were obtained. Moderate diverticulosis Rectum:? Normal Ano-rectum:? Farrah-anal skin tags Colon preparation:? Good? Impression and Post Procedure Diagnosis: Colonoscopy Findings: One diminutive appearing polyp removed Moderate diverticulosis seen in the sigmoid colon Plan: Await pathology results Patient has an appointment on 10/24/22 in the GI Clinic with ALEXANDRE Pinon . Repeat Colonoscopy interval based on path results - in 5 years if polyps are adenomatous and 10 years if polyps are hyperplastic. Above findings were reviewed with the patient and colon polyps and diverticulosis handouts were given in the discharge area Name:Misty Benitez Age/Sex: 72/F Attending: Chip Weiss MD : 1950 Submitted by: Chip Weiss MD Copies to: JeremyAndrea Levin MD MR #: [id number] ? Status: DEP SDC Collected: 10/09/22 [facility] Received: 10/09/22 Diagnosis A.? Colon, random, biopsy:? Mild melanosis coli; otherwise colonic mucosa within normal limits. B.? Colon, descending, biopsy:? Colonic mucosa within normal limits. Clinical History Pre-Op Dx:? Screening colonoscopy Post-Op Dx: Colonoscopy, diverticulosis Repeat 10 years Assessment & Plan Assessment & Plan (1) Melanosis coli: Code(s): K63.89 - Other specified diseases of intestine Plan: Reviewed procedure report and pathology Discussed bowel regimen consistent (2) Diverticulosis of colon: Code(s): K57.30 - Diverticulosis of large intestine without perforation or abscess without bleeding Plan: ER protocol Plan Repeat asymptomatic colonoscopy 10 Avoid constipation, consistent bowel regimen Medications: New docusate sodium (Colace) 200 mg (2 x 100 mg) PO BEDTIME 60 caps 5RF polyethylene glycol 3350 (Miralax) 17 grams PO DAILY 510 grams 6RF Refilled methylcellulose (laxative) (Citrucel) 500 mg PO TID 90 tabs 5RF Patient Instructions: Very pleasant 72-year-old female with chronic constipation follows up after recent colonoscopy. She will repeat asymptomatic colonoscopy 10 years Avoid constipation, consistent bowel regimen She may give trial to fiber tablets as well as stool softeners. Diverticulosis/diverticulitis ER protocol discussed No major barriers to understanding were identified Encouraged to call with questions or concerns We appreciate the opportunity assist in the care this pleasant patient Coding Level of Care Code Est Pt Level 3 (75636) Diagnoses Melanosis coli K63.89 Diverticulosis of colon K57.30 Time Spent (min) 25 Comment Daughter director of medical staff services
== END 2022-10-24 12:26 | disposition home or self-care (01) ==
PROVIDERS: PCP Internal Medicine; Visit Provider Physician Assistant
DX: K63.89 Other specified diseases of intestine (principal); K57.30 Diverticulosis of large intestine without perforation or abscess without bleeding
CPT/HCPCS: 99213

== ENCOUNTER → 2022-10-24 11:56 | Outpatient (BNVA) | payer MEDICARE, MEDICAID, SELFPAY | PROVIDERS: PCP Internal Medicine; Visit Provider Physician Assistant | DX: K63.89 Other specified diseases of intestine (principal); K57.30 Diverticulosis of large intestine without perforation or abscess without bleeding | CPT/HCPCS: 99212 ==

== ENCOUNTER 2022-12-28 11:01 | Outpatient (REF) | payer MEDICARE, MEDICAID, SELFPAY | END 2022-12-28 11:02 | disposition home or self-care (01) | LOC: HO.MAMMO 11:01 | PROVIDERS: PCP Internal Medicine; Visit Provider Internal Medicine | DX: Z12.31 Encounter for screening mammogram for malignant neoplasm of breast (principal) | CPT/HCPCS: 77063; 77067 ==

== ENCOUNTER → 2022-12-28 11:30 | Outpatient (BNV) | payer MEDICARE, MEDICAID, SELFPAY | PROVIDERS: PCP Internal Medicine; Visit Provider Radiology Diagnostic Radiology | DX: Z12.31 Encounter for screening mammogram for malignant neoplasm of breast (principal) | CPT/HCPCS: 77063; 77067 ==

== ENCOUNTER 2022-12-31 07:04 | Outpatient (REF) | payer MEDICARE, MEDICAID, SELFPAY ==
[2022-12-31 07:40] LABS: Estimated Average Glucose 131 mg/dL; Hemoglobin A1C 148.5269 umol/L; Hemoglobin A1c % 6.2 % (<6.0)
[2022-12-31 08:05] LABS: Alanine Aminotransferase 34 U/L (0-31); Albumin Level 4.4 g/dL (3.5-5.0); Alkaline Phosphatase 82 U/L (39-117); Anion Gap 16 (12-20); Aspartate Amino Transferase 30 U/L (5-31); Bilirubin Total 0.4 mg/dL (0.0-1.0); Blood Urea Nitrogen 16 mg/dL (9-16); Calcium 10.1 mg/dL (8.4-10.2); Carbon Dioxide 27 mmol/L (22-29); Chloride 103 mmol/L (96-108); Cholesterol 211 mg/dL (<200); Estimated Glomerular Filt Rate > 60; Glucose Random 114 mg/dL (60-115); HDL Cholesterol 59 mg/dL (>40); LDL Cholesterol Calculated 128 mg/dL (<100); Potassium 4.5 mmol/L (3.3-5.1); Sodium 141 mmol/L (135-145); Total Protein 7.8 g/dL (6.5-8.0); Triglycerides 122 mg/dL (<150)
== END 2022-12-31 07:05 | disposition home or self-care (01) ==
LOC: HO.LAB 07:04
PROVIDERS: PCP Internal Medicine; Visit Provider Internal Medicine
DX: R73.02 Impaired glucose tolerance (oral) (principal); E78.00 Pure hypercholesterolemia, unspecified
CPT/HCPCS: 36415; 80053; 80061; 83036

== ENCOUNTER 2023-01-09 10:52 | Outpatient (AMB) | payer MEDICARE, MEDICAID, SELFPAY ==
--- NOTE | 2023-01-09 10:56 | A.OFFPC_ITS ---
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 Accompanied by: Son Allergies No Known Allergies Allergy (Verified 01/09/23 10:58) Medication List - Last Reconciled 01/09/23 by Andrea Luna MD aspirin (Adult Aspirin Regimen) 81 mg PO DAILY baclofen 10 mg PO TID PRN blood pressure monitor (Blood Pressure Kit) As directed dextromethorphan polistirex ER (Delsym 12 hour) 10 mL PO Q12H PRN docusate sodium (Colace) 200 mg (2 x 100 mg) PO BEDTIME fexofenadine (Allergy Relief (fexofenadine)) 180 mg PO DAILY 90 days lisinopril 10 mg PO DAILY 30 days methylcellulose (laxative) (Citrucel) 500 mg PO TID omeprazole 20 mg PO DAILY polyethylene glycol 3350 (Miralax) 17 grams PO DAILY sennosides-docusate sodium 8.6-50 mg (Senna Plus) 2 tab-caps (2 x 8.6-50 mg) PO BEDTIME PRN 30 days simvastatin 10 mg PO BEDTIME 30 days Tobacco use date assessed: 06/15/22 Fall risk assessment: No Falls in past year Last assessed Fall Risk: 01/09/23 Dental Screening Dental Screen Date: 01/09/23 Did you have a dental visit in the last 12 months?: Yes Did you have a dental problem in the last 6 months where you did not have access to dental care?: No Was dental information given to patient?: Patient has dentist HPI igt, cholesterol HPI Details 72-year-old obese female with hypertensi on, hypercholesterolemia impaired glucose tolerance and GERD last seen in September 2022. Patient's colonoscopy is up-to-date mammogram due this month. Patient did see gastroenterology is October 2022 status post colonoscopy have constipation was given laxatives [facility] Medical History (Updated 01/09/23 @ 12:00 by Andrea Luna MD) Colon cancer screening Encounter for removal of linn Hospital discharge follow-up Right shoulder pain Migraine Hypertension Hypercholesterolemia Impaired glucose tolerance Obesity (BMI 30-39.9) Allergic rhinitis Fatty liver GERD (gastroesophageal reflux disease) Left shoulder tendinitis Surgical History Hx of varicose vein ligation Hx of colonoscopy Family History Mother No problems noted. Father No problems noted. Other Substance use Social History Housing: Apartment Alcohol intake: never Patient Tobacco Use Status: Never used Tobacco e-Cigarette/Vaping Use: Never Used Second Hand Smoke Exposure: No service: No Current occupational status: unemployed Cognitive needs: No Hearing needs: No Vision needs: Yes Questionnaire Thrive Questionnaire Date Thrive assessed: 06/15/22 MARSHALL-7 AMB Questionnaire MARSHALL-7 Date MARSHALL - 7 assessed: 06/15/22 Source: Developed by Drs. Alfredito Reardon, Rosetta Adams, Byron Billy and colleagues, with an educational marquita from [employer]. Physical exam (Primary Care) Vital Signs: Last Vital Signs Pulse 74 01/09/23 10:57 BP 132/76 01/09/23 10:57 Pulse Ox 98 01/09/23 10:57 Oxygen Delivery Method Room Air 01/09/23 10:57 BMI result Body Mass Index 33.2 Tobacco/Smoking Status: Tobacco use Status Tobacco use date assessed 06/15/22 01/09/23 10:59 Patient Tobacco Use Status Never used Tobacco 01/09/23 10:59 e-Cigarette/Vaping Use Never Used 01/09/23 10:59 Thrive Assessment: Date of Thrive Assessment Date Thrive assessed 06/15/22 01/09/23 10:59 Const General: alert; No acute distress Eyes Conjunctivae: conjunctivae normal Resp Auscultation: clear to auscultation bilaterally Cardio Rate: regular rate Rhythm: regular rhythm GI Inspection: Yes normal to inspection Extrem General: Yes normal to inspection and No edema Office Procedures Flu Questionnaire Does the patient have a severe egg allergy?: No Immunizations flu vacc [id number] 6mos up(PF) 60 mcg(15 mcgx4)/0.5 mL IM syringe Performing Provider: Andrea Luna MD [facility] Documented (not given) by: MK Cardenas on 01/09/23 12:39 Reason Not Given: Patient Refused Assessment and Plan Assessment & Plan (1) Diverticulosis of colon: Code(s): K57.30 - Diverticulosis of large intestine without perforation or abscess without bleeding Plan: Three rules for constipation 1. Diet need to have a high fiber diet less of meat 2. Increase oral fluids 3. Exercise (2) Hypertension: Code(s): I10 - Essential (primary) hypertension Qualifiers: Hypertension type: essential hypertension Qualified Code(s): I10 - Essential (primary) hypertension Plan: Continue with blood pressure medication. Decrease salt intake and exercise patient on lisinopril 10 mg once a day (3) Hypercholesterolemia: Code(s): E78.00 - Pure hypercholesterolemia, unspecified Plan: Avoid fried foods, chicken skin, eggs, butter margarine, pastries and meat. Be it pork or beef they have a lot of cholesterol LDL goal of less than 130 and triglyceride of less than 150 patient on recent a statin 10 mg once (4) Impaired glucose tolerance: Code(s): R73.02 - Impaired glucose tolerance (oral) Plan: Decrease the amount of carbohydrate intake, pasta, bread, rice and potatoes are all sugar and that is aside from all the sweet stuff, remember that fruits are good but they are Sweet also. (5) Obesity (BMI 30-39.9): Code(s): E66.9 - Obesity, unspecified Plan: Diet and exercise (6) GERD (gastroesophageal reflux disease): Code(s): K21.9 - Gastro-esophageal reflux disease without esophagitis Qualifiers: Esophagitis presence: without esophagitis Qualified Code(s): K21.9 - Gastro-esophageal reflux disease without esophagitis Plan: Avoid the foods that causes that usually spicy foods, tomato products, juices, coffee, soda and foods that your sensitive to. After eating do not lie down, allow 3-4 hours before in lie down. And keep the head of bed above 30 degrees to avoid the acid from going up. (7) Mandibular bony exostosis: Code(s): M27.8 - Other specified diseases of jaws (8) Maxillary bone thickening: Code(s): M89.38 - Hypertrophy of bone, other site Orders: Orders Comprehensive Met. Panel 3 Months R73.02 - Impaired glucose tolerance (oral) Complete Blood Count Auto Diff 3 Months R73.02 - Impaired glucose tolerance (oral) Lipid Panel 3 Months E78.00 - Pure hypercholesterolemia, unspecified, R73.02 - Impaired glucose tolerance (oral) Vitamin B12 and Folate 3 Months R73.02 - Impaired glucose tolerance (oral) Influenza [id number] Immunization Today Z23 - Encounter for immunization Hemoglobin A1c 3 Months R73.02 - Impaired glucose tolerance (oral) Thyroid Stimulating Hormone 3 Months R73.02 - Impaired glucose tolerance (oral) Free T4 (Free Thyroxine) 3 Months R73.02 - Impaired glucose tolerance (oral) Vitamin D 25-OH Total 3 Months R73.02 - Impaired glucose tolerance (oral) Referrals Oral Surgery Referal M89.38 - Hypertrophy of bone, other site Medications: New dextromethorphan polistirex ER (Delsym 12 hour) 10 mL PO Q12H PRN 89 mL 0RF cough M89.38 - Hypertrophy of bone, other site Coding Level of Care Code Est Pt Level 4 (95121) Diagnoses Diverticulosis of colon K57.30 Essential hypertension I10 Hypertension type: essential hypertension Hypercholesterolemia E78.00 Impaired glucose tolerance R73.02 Obesity (BMI 30-39.9) E66.9 Gastroesophageal reflux disease without esophagitis K21.9 Esophagitis presence: without esophagitis Mandibular bony exostosis M27.8 Maxillary bone thickening M89.38
[2023-01-09 10:57] VITALS: BP 132/76; PULSE 74; O2SAT 98; BMI 33.2
== END 2023-01-09 12:05 | disposition home or self-care (01) ==
PROVIDERS: PCP Internal Medicine; Visit Provider Internal Medicine
DX: K57.30 Diverticulosis of large intestine without perforation or abscess without bleeding (principal); I10 Essential (primary) hypertension; E78.00 Pure hypercholesterolemia, unspecified; R73.02 Impaired glucose tolerance (oral); E66.9 Obesity, unspecified; K21.9 Gastro-esophageal reflux disease without esophagitis; M27.8 Other specified diseases of jaws; M89.38 Hypertrophy of bone, other site
CPT/HCPCS: 99214

== ENCOUNTER 2023-04-15 07:02 | Outpatient (REF) | payer MEDICARE, MEDICAID, SELFPAY ==
[2023-04-15 07:16] LABS: MANUAL DIFF FLAG NO
[2023-04-15 07:45] LABS: Basophils Absolute Auto 0.1 X10*3/uL (0.0-0.2); Basophils Percent Auto 0.7 % (0-2); Eosinophils Absolute Auto 0.1 X10*3/uL (0.0-0.4); Eosinophils Percent Auto 1.3 % (0-4); Hematocrit 45.7 % (37.0-47.0); Imm Gran Abs Auto 0.03 X10*3/uL (0.00-0.03); Imm Gran Pct Auto 0.3 % (0.0-0.4); Lymphocytes Absolute Auto 1.8 X10*3/uL (1.2-4.9); Mean Corpuscular HGB Conc 32.8 g/dl (31.0-35.0); Mean Corpuscular Hemoglobin 26.8 pg (27.0-33.0); Mean Corpuscular Volume 81.6 fL (80.0-98.0); Mean Platelet Volume 10.7 fL (9.4-12.3); Monocytes Absolute Auto 0.8 X10*3/uL (0.1-1.2); Monocytes Percent Auto 8.3 % (2-11); Neutrophils Absolute Auto 6.8 x10*3/uL (2.0-8.3); Neutrophils Percent Auto 70.4 % (45-73); Platelet Count 322 X10*3/uL (160-400); Red Cell Distribution Width 14.8 % (11.0-16.0); White Blood Count 9.7 X10*3/uL (4.8-10.8)
[2023-04-15 07:50] LABS: Estimated Average Glucose 128 mg/dL; Hemoglobin A1c % 6.1 % (<6.0)
[2023-04-15 08:11] LABS: Alanine Aminotransferase 24 U/L (0-31); Albumin Level 4.3 g/dL (3.5-5.0); Alkaline Phosphatase 92 U/L (39-117); Anion Gap 15 (12-20); Aspartate Amino Transferase 22 U/L (5-31); Bilirubin Total 0.4 mg/dL (0.0-1.0); Blood Urea Nitrogen 22 mg/dL (9-16); Calcium 9.8 mg/dL (8.4-10.2); Carbon Dioxide 26 mmol/L (22-29); Chloride 103 mmol/L (96-108); Cholesterol 206 mg/dL (<200); Estimated Glomerular Filt Rate > 60; Glucose Random 114 mg/dL (60-115); HDL Cholesterol 63 mg/dL (>40); LDL Cholesterol Calculated 120 mg/dL (<100); Potassium 3.9 mmol/L (3.3-5.1); Sodium 140 mmol/L (135-145); Triglycerides 119 mg/dL (<150)
[2023-04-15 08:26] LABS: Thyroid Stimulating Hormone 1.77 uIU/mL (0.32-4.0); Vitamin D 25-OH Total 43.6 ng/mL (>30)
[2023-04-15 08:39] LABS: Vitamin B12 1284 pg/mL (200-900)
[2023-04-15 08:40] LABS: Folate 14.7 ng/mL (> or = 4.0)
== END 2023-04-15 07:03 | disposition home or self-care (01) ==
LOC: HO.LAB 07:02
PROVIDERS: PCP Internal Medicine; Visit Provider Internal Medicine
DX: E78.00 Pure hypercholesterolemia, unspecified (principal); R73.02 Impaired glucose tolerance (oral)
CPT/HCPCS: 36415; 80053; 80061; 82306; 82607; 82746; 83036; 84439; 84443; 85025

== ENCOUNTER 2023-04-25 10:17 | Outpatient (AMB) | payer MEDICARE, MEDICAID, SELFPAY ==
[2023-04-25 10:22] VITALS: BP 120/70; PULSE 72; O2SAT 98; BMI 32.9
--- NOTE | 2023-04-25 10:22 | A.OFFPC_ITS ---
Vital Signs 04/25/23 10:22 Height 5 ft 6 in Weight 204 lb 0.6 oz BMI 32.9 BP 120/70 Blood Pressure Location Lt brachial Position Sitting Pulse 72 Pulse Source Pulse Oximeter Pulse Oximetry (%) 98 Oxygen Delivery Method Room Air Intake Visit Reasons: Annual Exam Intake Note: Patient is here today for a physical. 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 Allergies No Known Allergies Allergy (Verified 04/25/23 10:22) Medication List - Last Reconciled 04/25/23 by Andrea Luna MD ascorbate calcium (vitamin C) 500 mg PO DAILY aspirin (Adult Aspirin Regimen) 81 mg PO DAILY baclofen 10 mg PO TID PRN blood pressure monitor (Blood Pressure Kit) As directed docusate sodium (Colace) 200 mg (2 x 100 mg) PO BEDTIME fexofenadine (Allergy Relief (fexofenadine)) 180 mg PO DAILY 90 days lisinopril 10 mg PO DAILY 30 days methylcellulose (laxative) (Citrucel) 500 mg PO TID multivitamin (One-A-Day Essential tablet) 1 tab PO DAILY omeprazole 20 mg PO DAILY polyethylene glycol 3350 (Miralax) 17 grams PO DAILY sennosides-docusate sodium 8.6-50 mg (Senna Plus) 2 tab-caps (2 x 8.6-50 mg) PO BEDTIME PRN 30 days simvastatin 10 mg PO BEDTIME 30 days Tobacco use date assessed: 04/25/23 Fall risk assessment: No Falls in past year Last assessed Fall Risk: 04/25/23 Dental Screening Dental Screen Date: 04/25/23 Did you have a dental visit in the last 12 months?: Yes Did you have a dental problem in the last 6 months where you did not have access to dental care?: No Was dental information given to patient?: Patient has dentist HPI Annual Exam HPI Details 72-year-old obese female with hypertensi on hypercholesterolemia impaired glucose tolerance GERD last seen in December 2022. Patient's colonoscopy is up-to-date September 2022 mammogram is up-to-date December 2022 and the bone density also. Patient sees Rheumatology and was last seen in March 2023 seeing for subacromial bursitis bilateral with neck pain low back pain and left knee pain diagnosis of osteoarthritis with anserine bursitis patient had some injection done. Son is interpret [facility] Medical History (Updated 01/09/23 @ 12:00 by Andrea Luna MD) Colon cancer screening Encounter for removal of [facility] Hospital discharge follow-up Right shoulder pain Migraine Hypertension Hypercholesterolemia Impaired glucose tolerance Obesity (BMI 30-39.9) Allergic rhinitis Fatty liver GERD (gastroesophageal reflux disease) Left shoulder tendinitis Surgical History Hx of varicose vein ligation Hx of colonoscopy Family History Mother No problems noted. Father No problems noted. Other Substance use Social History Housing: Apartment Alcohol intake: never Patient Tobacco Use Status: Never used Tobacco e-Cigarette/Vaping Use: Never Used Second Hand Smoke Exposure: No service: No Current occupational status: unemployed Cognitive needs: No Hearing needs: No Vision needs: Yes Questionnaire PHQ-9 Over the last 2 weeks, how often have you been bothered by any of the following problems? 1. Little interest or pleasure in doing things: not at all 2. Feeling down, depressed, or hopeless: not at all 3. Trouble falling or staying asleep, or sleeping too much: not at all 4. Feeling tired or having little energy: not at all 5. Poor appetite or overeating: not at all 6. Feeling bad about yourself - or that you are a failure or have let yourself or your family down: not at all 7. Trouble concentrating on things, such as reading the newspaper or watching television: not at all 8. Moving or speaking so slowly that other people could have noticed. Or the opposite - being so fidgety or restless that you have been moving around a lot more than usual: not at all 9. Thoughts that you would be better off or of hurting yourself in some way: not at all Total score: 0 Depression Screening Interpretation: Negative Depression Screening Done: Yes Source: Developed by Drs. Alfredito Reardon, Rosetta Adams, Byron Billy and colleagues, with an educational marquita from [employer]. Thrive Questionnaire Date Thrive assessed: 04/25/23 I am a: Patient What is your living situation today?: I have a steady place to live Within the past 12 months, did the food you bought not last and you didn't have the money to get more?: Never true Within the past 12 months, did you worry whether your food would run out before you got money to buy more?: Never true Do you have trouble paying for medicines?: No Do you have trouble getting transportation to medical appointments?: No Do you have trouble paying your heating and electricity bill?: No Do you have trouble taking care of your child, family member or friend?: No Do you have trouble with day-to-day activities such as bathing, preparing meals, shopping, managing finances, etc.?: No Are you currently unemployed and looking for a job?: No Are you interested in more education?: No Please select the resources that you would like help with: None THRIVE Score: 0 AUDIT C Alcohol Use Questionnaire (AUDIT-C) 1. How often do you have a drink containing alcohol?: Never 3. How often do you have six or more drinks on one occasion?: Never Total Score: 0 Score Reviewed/Action Taken: No MARSHALL-7 AMB Questionnaire MARSHALL-7 Date MARSHALL - 7 assessed: 04/25/23 Feeling nervous, anxious, or on edge: 0 = Not at all Not being able to stop or control worryin = Not at all Worrying too much about different things: 0 = Not at all Trouble relaxin = Not at all Being so restless that it is hard to sit still: 0 = Not at all Becoming easily annoyed or irritable: 0 = Not at all Feeling afraid as if something awful might happen: 0 = Not at all Total MARSHALL-7 score (0-4 normal; 5-9 mild; 10-14 moderate; 15-21 severe): 0 Source: Developed by Drs. Alfredito Reardon, Rosetta Adams, Byron Billy and colleagues, with an educational marquita from [employer]. Review of Systems Const Denies poor appetite and Denies weakness Eyes Denies no additional complaints ENT Reports Normal hearing present, Denies dizziness, Denies nasal congestion, Denies tinnitus and Denies sore throat Card Denies chest pain, Denies syncope, Denies rapid heart rate and Denies dyspnea Resp Denies cough and Denies dyspnea GI Denies change in stool character, Reports constipation, Denies diarrhea, Denies nausea and Denies vomiting Denies urinary frequency, Denies difficulty voiding and Denies dysuria Neuro Reports Normal hearing present, Denies confusion, Denies dizziness, Denies syncope and Denies weakness Psych Denies confusion Physical exam (Primary Care) Vital Signs: Last Vital Signs Pulse 72 04/25/23 10:22 BP 120/70 04/25/23 10:22 Pulse Ox 98 04/25/23 10:22 Oxygen Delivery Method Room Air 04/25/23 10:22 BMI result Body Mass Index 32.9 Tobacco/Smoking Status: Tobacco use Status Tobacco use date assessed 04/25/23 04/25/23 10:24 Patient Tobacco Use Status Never used Tobacco 04/25/23 10:24 e-Cigarette/Vaping Use Never Used 04/25/23 10:24 PHQ-9: PHQ-9 Score PHQ-9: Total score 0 04/25/23 10:44 Depression Screening Interpretation: Negative Thrive Assessment: Date of Thrive Assessment Date Thrive assessed 04/25/23 04/25/23 10:24 Const General: No confusion Orientation/consciousness: No confusion HENMT Head: Yes normocephalic Ears: external ears normal and TM's normal bilaterally Face and sinus: Yes normal facial exam Mouth: moist mucous membranes Throat: Yes tonsils normal Eyes Conjunctivae: conjunctivae normal Pupils: Equal, round and reactive pupils present and Pupil accommodation reflex normal Direct Ophthalmoscopy: normal light reflex Neck Neck: No lymphadenopathy Thyroid: Thyroid normal Chest Chest palpation & inspection: normal inspection of the chest Resp Effort & Inspection: normal respiratory effort and no audible wheezes Auscultation: clear to auscultation bilaterally, no crackles, no wheezes and lung sounds not diminished Cardio Rate: regular rate Rhythm: regular rhythm Peripheral pulses: radial pulses present and dorsalis pedis present GI Palpation (GI): no masses Auscultation: normal bowel sounds and normoactive bowel sounds Rectal Exam - Female: deferred Skin General skin exam: no rashes or lesions noted Rashes: no rashes Neuro General: No confusion Cranial nerves: Yes Equal, round and reactive pupils present and Yes Normal hearing present Cognition (Neuro): normal cognition Gait exam (Neuro): Normal gait present Motor exam (neuro): 5/5 motor strength present throughout Deep tendon reflexes (DTR's): Right brachioradialis reflex intensity grade: 2+, Left brachioradialis reflex intensity grade: 2+, Right patellar reflex intensity grade: 2+ and Left patellar reflex intensity grade: 2+ Extrem General: No edema Office Procedures Flu Questionnaire Does the patient have a severe egg allergy?: No Does the patient have severe life threatening allergies?: No Does the patient have a fever or illness today?: No Has the patient ever had Guillain-Shannon Syndrome?: No Has the patient ever had any past reaction to a flu shot?: No Immunizations flu vacc [id number] 6mos up(PF) 60 mcg(15 mcgx4)/0.5 mL IM syringe Performing Provider: Andrea Luna MD 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 0.5 mL IM Left Deltoid 0.5 mL [id number] 09/15/23 79216-469-91 [employer] VIS Given Date VIS Provided VIS Publication Date 04/25/23 Single Vaccine 20 Eligibility Eligibility Date Funding Source Not [facility] Eligible 04/25/23 Private Assessment and Plan Assessment & Plan (1) Annual physical exam: Code(s): Z00.00 - Encounter for general adult medical examination without abnormal findings (2) Obesity (BMI 30-39.9): Code(s): E66.9 - Obesity, unspecified Plan: Diet and exercise (3) GERD (gastroesophageal reflux disease): Code(s): K21.9 - Gastro-esophageal reflux disease without esophagitis Qualifiers: Esophagitis presence: without esophagitis Qualified Code(s): K21.9 - Gastro-esophageal reflux disease without esophagitis Plan: Avoid the foods that causes that usually spicy foods, tomato products, juices, coffee, soda and foods that your sensitive to. After eating do not lie down, allow 3-4 hours before in lie down. And keep the head of bed above 30 degrees to avoid the acid from going up. (4) Impaired glucose tolerance: Code(s): R73.02 - Impaired glucose tolerance (oral) Plan: Decrease the amount of carbohydrate intake, pasta, bread, rice and potatoes are all sugar and that is aside from all the sweet stuff, remember that fruits are good but they are Sweet also. Hemoglobin A1c was 6.18 March 2023 (5) Hypertension: Code(s): I10 - Essential (primary) hypertension Qualifiers: Hypertension type: essential hypertension Qualified Code(s): I10 - Essential (primary) hypertension Plan: Continue with blood pressure medication. Decrease salt intake and exercise patient takes lisinopril 10 mg once a day (6) Hypercholesterolemia: Code(s): E78.00 - Pure hypercholesterolemia, unspecified Plan: Avoid fried foods, chicken skin, eggs, butter margarine, pastries and meat. Be it pork or beef they have a lot of cholesterol LDL goal of less than 130 and triglyceride of less than 150. Patient takes simvastatin 10 mg. Orders: Orders Lipid Panel 6 Months E78.00 - Pure hypercholesterolemia, unspecified, R73.02 - Impaired glucose tolerance (oral) Comprehensive Met. Panel 6 Months R73.02 - Impaired glucose tolerance (oral) Hemoglobin A1c 6 Months R73.02 - Impaired glucose tolerance (oral) Coding Level of Care Code Est Pt Prev Care >65y(15071) Diagnoses Annual physical exam Z00.00 Obesity (BMI 30-39.9) E66.9 Gastroesophageal reflux disease without esophagitis K21.9 Esophagitis presence: without esophagitis Impaired glucose tolerance R73.02 Essential hypertension I10 Hypertension type: essential hypertension Hypercholesterolemia E78.00 Additional Codes PHQ-9 - 63915 - PHQ-9 Billing: ([id number])
== END 2023-04-25 11:17 | disposition home or self-care (01) ==
PROVIDERS: Visit Provider Internal Medicine
DX: Z00.00 Encounter for general adult medical examination without abnormal findings (principal); E66.9 Obesity, unspecified; Z68.32 Body mass index [BMI] 32.0-32.9, adult; Z23 Encounter for immunization; K21.9 Gastro-esophageal reflux disease without esophagitis; R73.02 Impaired glucose tolerance (oral); I10 Essential (primary) hypertension; E78.00 Pure hypercholesterolemia, unspecified
CPT/HCPCS: 90471; 90686; 99397

== ENCOUNTER 2023-10-16 06:36 | Outpatient (REF) | payer OTHER, SELFPAY ==
[2023-10-16 07:37] LABS: Alanine Aminotransferase 25 U/L (0-31); Albumin Level 4.2 g/dL (3.5-5.0); Alkaline Phosphatase 81 U/L (39-117); Anion Gap 13 (12-20); Aspartate Amino Transferase 26 U/L (5-31); Bilirubin Total 0.4 mg/dL (0.0-1.0); Blood Urea Nitrogen 16 mg/dL (9-16); Calcium 9.9 mg/dL (8.4-10.2); Carbon Dioxide 25 mmol/L (22-29); Chloride 105 mmol/L (96-108); Cholesterol 182 mg/dL (<200); Estimated Glomerular Filt Rate > 60; Glucose Random 109 mg/dL (60-115); HDL Cholesterol 53 mg/dL (>40); LDL Cholesterol Calculated 101 mg/dL (<100); Potassium 4.1 mmol/L (3.3-5.1); Sodium 139 mmol/L (135-145); Total Protein 7.6 g/dL (6.5-8.0); Triglycerides 141 mg/dL (<150)
[2023-10-16 08:02] LABS: Estimated Average Glucose 137 mg/dL; Hemoglobin A1c % 6.4 % (<6.0)
== END 2023-10-16 06:37 | disposition home or self-care (01) ==
LOC: HO.LAB 06:36
PROVIDERS: PCP Internal Medicine; Visit Provider Internal Medicine
DX: R73.02 Impaired glucose tolerance (oral) (principal); E78.00 Pure hypercholesterolemia, unspecified
CPT/HCPCS: 36415; 80053; 80061; 83036

== ENCOUNTER 2023-10-30 09:14 | Outpatient (AMB) | payer OTHER, SELFPAY ==
[2023-10-30 09:28] VITALS: BP 142/82; PULSE 78; O2SAT 98; BMI 32.9
--- NOTE | 2023-10-30 09:28 | MHC.PC.OV ---
Vital Signs 10/30/23 09:28 Height 5 ft 6 in Weight 204 lb BMI 32.9 BP 142/82 H Blood Pressure Location Lt brachial Position Sitting Pulse 78 Pulse Source Pulse Oximeter Pulse Oximetry (%) 98 Oxygen Delivery Method Room Air Intake Visit Reasons: Back pain left side, HTN, Cholesterol Allergies No Known Allergies Allergy (Verified 10/30/23 09:28) Tobacco use date assessed: 04/25/23 Fall risk assessment: No Falls in past year Last assessed Fall Risk: 10/30/23 Dental Screening Dental Screen Date: 04/25/23 HPI HTN, Cholesterol HPI Details 73-year-old obese female with impaired glucose tolerance GERD hypertension hypercholesterolemia last seen in April 2023 patient's colonoscopy is up-to-date 10/04/2022 mammogram is up-to-date 01/04/2023 and bone density is up-to-date. Review of the notes has been follow-up with vascular for post ablation peripheral vascular disease right leg continues to be having swelling while the left leg is resolved. Advised additional ablations. BP high today but has been good she said [facility] Medical History (Updated 10/30/23 @ 09:47 by Andrea Luna MD) Colon cancer screening Encounter for removal of l[place] Hospital discharge follow-up Right shoulder pain Migraine Hypertension Hypercholesterolemia Impaired glucose tolerance Obesity (BMI 30-39.9) Allergic rhinitis Fatty liver GERD (gastroesophageal reflux disease) Left shoulder tendinitis Surgical History Hx of varicose vein ligation Hx of colonoscopy Family History Mother No problems noted. Father No problems noted. Other Substance use Social History Housing: Apartment Alcohol intake: never Patient Tobacco Use Status: Never used Tobacco Tobacco use type: Cigarette e-Cigarette/Vaping Use: Never Used Second Hand Smoke Exposure: No service: No Current occupational status: unemployed Cognitive needs: No Hearing needs: No Vision needs: Yes Questionnaire PHQ-9 Over the last 2 weeks, how often have you been bothered by any of the following problems? 1. Little interest or pleasure in doing things: not at all 2. Feeling down, depressed, or hopeless: not at all 3. Trouble falling or staying asleep, or sleeping too much: not at all 4. Feeling tired or having little energy: not at all 5. Poor appetite or overeating: not at all 6. Feeling bad about yourself - or that you are a failure or have let yourself or your family down: not at all 7. Trouble concentrating on things, such as reading the newspaper or watching television: not at all 8. Moving or speaking so slowly that other people could have noticed. Or the opposite - being so fidgety or restless that you have been moving around a lot more than usual: not at all 9. Thoughts that you would be better off or of hurting yourself in some way: not at all Total score: 0 Depression Screening Interpretation: Negative Depression Screening Done: Yes Source: Developed by Drs. Alfredito Reardon, Rosetta Adams, Byron Billy and colleagues, with an educational marquita from [employer]. Thrive Questionnaire Date Thrive assessed: 04/25/23 AUDIT C Alcohol Use Questionnaire (AUDIT-C) 1. How often do you have a drink containing alcohol?: Never 3. How often do you have six or more drinks on one occasion?: Never Total Score: 0 Score Reviewed/Action Taken: No MARSHALL-7 AMB Questionnaire MARSHALL-7 Date MARSHALL - 7 assessed: 04/25/23 Source: Developed by Drs. Alfredito Reardon, Rosetta Adams, Byron Billy and colleagues, with an educational marquita from [employer]. Physical exam (Primary Care) Vital Signs: Last Vital Signs Pulse 78 10/30/23 09:28 BP 142/82 H 10/30/23 09:28 Pulse Ox 98 10/30/23 09:28 Oxygen Delivery Method Room Air 10/30/23 09:28 BMI result Body Mass Index 32.9 Tobacco/Smoking Status: Tobacco use Status Tobacco use date assessed 04/25/23 10/30/23 09:34 Patient Tobacco Use Status Never used Tobacco 10/30/23 09:34 Tobacco use type Cigarette 10/30/23 09:34 e-Cigarette/Vaping Use Never Used 10/30/23 09:34 PHQ-9: PHQ-9 Score PHQ-9: Total score 0 10/30/23 09:34 Depression Screening Interpretation: Negative Thrive Assessment: Date of Thrive Assessment Date Thrive assessed 04/25/23 10/30/23 09:34 Const General: alert; No acute distress Eyes Conjunctivae: conjunctivae normal Resp Auscultation: clear to auscultation bilaterally Cardio Rate: regular rate Rhythm: regular rhythm GI Inspection: Yes normal to inspection Extrem General: Yes normal to inspection and No edema Assessment and Plan Assessment & Plan (1) Peripheral vascular disease: Comment: Some numbness left thigh, status post ablation left Code(s): I73.9 - Peripheral vascular disease, unspecified Plan: Patient continues to have vascular congestion on the right leg and planned ablation (2) Impaired glucose tolerance: Code(s): R73.02 - Impaired glucose tolerance (oral) Plan: Decrease the amount of carbohydrate intake, pasta, bread, rice and potatoes are all sugar and that is aside from all the sweet stuff, remember that fruits are good but they are Sweet also. Discussed with the patient that the hemoglobin A1c is back increasing higher. (3) Hypercholesterolemia: Code(s): E78.00 - Pure hypercholesterolemia, unspecified Plan: Avoid fried foods, chicken skin, eggs, butter margarine, pastries and meat. Be it pork or beef they have a lot of cholesterol LDL goal of less than 130 and triglyceride of less than 150 on simvastatin 10 mg once a day (4) Hypertension: Code(s): I10 - Essential (primary) hypertension Qualifiers: Hypertension type: essential hypertension Qualified Code(s): I10 - Essential (primary) hypertension Plan: Continue with blood pressure medication. Decrease salt intake and exercise patient is on lisinopril 10 mg once a day (5) Obesity (BMI 30-39.9): Code(s): E66.9 - Obesity, unspecified Plan: Diet and exercise Orders: Orders Complete Blood Count Auto Diff 3 Months R73.02 - Impaired glucose tolerance (oral) Hemoglobin A1c 3 Months R73.02 - Impaired glucose tolerance (oral) Comprehensive Met. Panel 3 Months R73.02 - Impaired glucose tolerance (oral) Coding Level of Care Code Est Pt Level 4 (20979) Diagnoses Peripheral vascular disease I73.9 Impaired glucose tolerance R73.02 Hypercholesterolemia E78.00 Essential hypertension I10 Hypertension type: essential hypertension Obesity (BMI 30-39.9) E66.9 Additional Codes PHQ-9 - 75773 - PHQ-9 Billing: ([id number])
== END 2023-10-30 11:50 | disposition home or self-care (01) ==
PROVIDERS: PCP Internal Medicine; Visit Provider Internal Medicine
DX: I73.9 Peripheral vascular disease, unspecified (principal); R73.02 Impaired glucose tolerance (oral); E66.9 Obesity, unspecified; Z68.32 Body mass index [BMI] 32.0-32.9, adult; E78.00 Pure hypercholesterolemia, unspecified; I10 Essential (primary) hypertension
CPT/HCPCS: 99214

== ENCOUNTER 2023-11-22 09:00 | Outpatient (REF) | payer OTHER, SELFPAY ==
[2023-11-22 09:11] LABS: MANUAL DIFF FLAG NO
[2023-11-22 09:54] LABS: Basophils Absolute Auto 0.1 X10*3/uL (0.0-0.2); Basophils Percent Auto 0.6 % (0-2); Eosinophils Absolute Auto 0.1 X10*3/uL (0.0-0.4); Eosinophils Percent Auto 1.7 % (0-4); Hematocrit 42.9 % (37.0-47.0); Hemoglobin 13.9 g/dl (12.0-16.0); Imm Gran Abs Auto 0.03 X10*3/uL (0.00-0.03); Imm Gran Pct Auto 0.4 % (0.0-0.4); Lymphocytes Percent Auto 24.6 % (20-40); Mean Corpuscular HGB Conc 32.4 g/dl (31.0-35.0); Mean Corpuscular Hemoglobin 26.9 pg (27.0-33.0); Mean Corpuscular Volume 83.1 fL (80.0-98.0); Mean Platelet Volume 10.4 fL (9.4-12.3); Monocytes Absolute Auto 0.8 X10*3/uL (0.1-1.2); Monocytes Percent Auto 9.7 % (2-11); Platelet Count 297 X10*3/uL (160-400); Red Blood Count 5.16 X10*6/uL (4.20-5.50); Red Cell Distribution Width 14.9 % (11.0-16.0)
[2023-11-22 10:47] LABS: Estimated Average Glucose 137 mg/dL; Hemoglobin A1c % 6.4 % (<6.0)
[2023-11-22 10:56] LABS: Alanine Aminotransferase 27 U/L (0-31); Albumin Level 4.3 g/dL (3.5-5.0); Alkaline Phosphatase 87 U/L (39-117); Anion Gap 12 (12-20); Aspartate Amino Transferase 25 U/L (5-31); Bilirubin Total 0.4 mg/dL (0.0-1.0); Blood Urea Nitrogen 18 mg/dL (9-16); Calcium 9.7 mg/dL (8.4-10.2); Carbon Dioxide 26 mmol/L (22-29); Chloride 107 mmol/L (96-108); Estimated Glomerular Filt Rate > 60; Glucose Random 96 mg/dL (60-115); Potassium 3.9 mmol/L (3.3-5.1); Sodium 141 mmol/L (135-145); Total Protein 7.6 g/dL (6.5-8.0)
== END 2023-11-22 09:01 | disposition home or self-care (01) ==
LOC: HO.LAB 09:00
PROVIDERS: PCP Internal Medicine; Visit Provider Internal Medicine
DX: R73.02 Impaired glucose tolerance (oral) (principal)
CPT/HCPCS: 36415; 80053; 83036; 85025

== ENCOUNTER 2024-01-03 11:12 | Outpatient (REF) | payer OTHER, SELFPAY ==
--- NOTE | ~2024-01-03 | MM_ITS ---
EXAMINATION: MM SCREENING DIGITAL BREAST TOMOSYNTHESIS, BILATERAL CLINICAL INFORMATION: Screening. Asymptomatic. COMPARISON: Mammography: Comparison is made with available priors TECHNIQUE: Digital breast mammography with tomosynthesis is performed in both the craniocaudal and mediolateral oblique views along with computer-aided detection (CAD). FINDINGS: There are scattered areas of fibroglandular density (ACR BI-RADS breast composition Category b). There are no significant masses, abnormal calcifications, or other abnormalities. MM/MM tomosynthesis screening BI IMPRESSION: No mammographic evidence of malignancy. ASSESSMENT: BI-RADS BI-RADS 1 - Negative RECOMMENDATION: Routine annual mammography screening. 1 year F/U This examination should not preclude the clinical evaluation of a suspicious palpable abnormality. This patient's information was entered into a reminder system with a target due date for their next mammogram. Electronically signed by: Bettina Vega DO 01/15/2024 10:13 AM EDT
== END 2024-01-03 11:13 | disposition home or self-care (01) ==
LOC: HO.MAMMO 11:12
PROVIDERS: PCP Internal Medicine; Visit Provider Internal Medicine
DX: Z12.31 Encounter for screening mammogram for malignant neoplasm of breast (principal)
CPT/HCPCS: 77063; 77067

== ENCOUNTER → 2024-01-03 11:30 | Outpatient (BNV) | payer OTHER, SELFPAY | PROVIDERS: PCP Internal Medicine; Visit Provider Internal Medicine | DX: Z12.31 Encounter for screening mammogram for malignant neoplasm of breast (principal) | CPT/HCPCS: 77063; 77067 ==

== ENCOUNTER 2024-02-17 10:21 | Outpatient (AMB) | payer OTHER, SELFPAY ==
[2024-02-17 10:45] VITALS: BP 132/80; PULSE 72; O2SAT 97; BMI 32.6
--- NOTE | 2024-02-17 10:45 | MHC.PC.OV ---
Vital Signs 02/17/24 10:45 Height 5 ft 6 in Weight 202 lb BMI 32.6 BP 132/80 Blood Pressure Location Lt brachial Position Sitting Pulse 72 Pulse Source Pulse Oximeter Pulse Oximetry (%) 97 Oxygen Delivery Method Room Air Intake Visit Reasons: DM Intake Note: Patient here for a follow up DM Business Analytics Manager Required: No Accompanied by: Son Allergies No Known Allergies Allergy (Verified 02/17/24 10:48) Medication List - Last Reconciled 02/17/24 by Andrea Luna MD ascorbate calcium (vitamin C) 500 mg PO DAILY aspirin (Adult Aspirin Regimen) 81 mg PO DAILY baclofen 10 mg PO TID PRN [Bathroom grab bar As directed] blood pressure monitor (Blood Pressure Kit) As directed blood sugar diagnostic (FreeStyle Lite Strips) As directed check the BS QD blood-glucose meter (FreeStyle Lite Meter kit) As directed docusate sodium (Colace) 200 mg (2 x 100 mg) PO BEDTIME fexofenadine (Allergy Relief (fexofenadine)) 180 mg PO DAILY 90 days lancets (FreeStyle Lancets) As directed check BS QD lisinopril 10 mg PO DAILY 30 days methylcellulose (laxative) (Citrucel) 500 mg PO TID multivitamin (One-A-Day Essential tablet) 1 tab PO DAILY omeprazole 20 mg PO DAILY polyethylene glycol 3350 (Miralax) 17 grams PO DAILY sennosides-docusate sodium 8.6-50 mg (Senna Plus) 2 tab-caps (2 x 8.6-50 mg) PO BEDTIME PRN 30 days simvastatin 10 mg PO BEDTIME 30 days Tobacco use date assessed: 04/25/23 Fall risk assessment: No Falls in past year Last assessed Fall Risk: 02/17/24 Dental Screening Dental Screen Date: 02/17/24 Did you have a dental visit in the last 12 months?: Yes Did you have a dental problem in the last 6 months where you did not have access to dental care?: No Was dental information given to patient?: Patient has dentist HPI DM HPI Details 73-year-old obese female with hypertension hypercholesterolemia impaired glucose tolerance and peripheral vascular disease last seen in 11/05/2023. Patient had colonoscopy done in 2022, mammogram is up-to-date bone density is up-to-date. Patient has been seen by the vascular had ablation done in October chronic lower extremity varicose veins /venous insufficiency advised continue with graded compression stockings. son interpret [facility] Medical History (Updated 02/17/24 @ 11:57 by Andrea Luna MD) Colon cancer screening Encounter for removal of [facility] Hospital discharge follow-up Right shoulder pain Migraine Hypertension Hypercholesterolemia Impaired glucose tolerance Obesity (BMI 30-39.9) Allergic rhinitis Fatty liver GERD (gastroesophageal reflux disease) Left shoulder tendinitis Surgical History Hx of varicose vein ligation Hx of colonoscopy Family History Mother No problems noted. Father No problems noted. Other Substance use Social History Housing: Apartment Alcohol intake: never Patient Tobacco Use Status: Never used Tobacco Tobacco use type: Cigarette e-Cigarette/Vaping Use: Never Used Second Hand Smoke Exposure: No service: No Current occupational status: unemployed Cognitive needs: No Hearing needs: No Vision needs: Yes Questionnaire Thrive Questionnaire Date Thrive assessed: 04/25/23 MARSHALL-7 AMB Questionnaire MARSHALL-7 Date MARSHALL - 7 assessed: 04/25/23 Source: Developed by Drs. Alfredito Reardon, Rosetta Adams, Byron Billy and colleagues, with an educational marquita from [employer]. Physical exam (Primary Care) Vital Signs: Last Vital Signs Pulse 72 02/17/24 10:45 BP 132/80 02/17/24 10:45 Pulse Ox 97 02/17/24 10:45 Oxygen Delivery Method Room Air 02/17/24 10:45 BMI result Body Mass Index 32.6 Tobacco/Smoking Status: Tobacco use Status Tobacco use date assessed 04/25/23 02/17/24 10:49 Patient Tobacco Use Status Never used Tobacco 02/17/24 10:49 Tobacco use type Cigarette 02/17/24 10:49 e-Cigarette/Vaping Use Never Used 02/17/24 10:49 Thrive Assessment: Date of Thrive Assessment Date Thrive assessed 04/25/23 02/17/24 10:49 Const General: alert; No acute distress Eyes Conjunctivae: conjunctivae normal Resp Auscultation: clear to auscultation bilaterally Cardio Rate: regular rate Rhythm: regular rhythm GI Inspection: Yes normal to inspection Extrem General: Yes normal to inspection and No edema Office Procedures Flu Questionnaire Does the patient have a severe egg allergy?: No Results AMB Hemoglobin A1c AMB Hemoglobin A1c 7.2 % Last Edit by MK Cardenas on 02/17/24 11:21 Immunizations Fluarix Triv [id number] (PF) 45 mcg (15 mcg x 3)/0.5 mL IM syringe Performing Provider: Andrea Luna MD [facility] Documented (not given) by: MK Cardenas on 02/17/24 10:50 Reason Not Given: Patient Refused Coding Level of Care Code Est Pt Level 4 (06977) Diagnoses Obesity (BMI 30-39.9) E66.9 Gastroesophageal reflux disease without esophagitis K21.9 Esophagitis presence: without esophagitis Hypercholesterolemia E78.00 Essential hypertension I10 Hypertension type: essential hypertension Type 2 diabetes mellitus with hyperglycemia, without long-term current use of insulin E11.65 Diabetes mellitus group home insulin use: without medical terminologist use Assessment & Plan Assessment & Plan (1) Obesity (BMI 30-39.9): Code(s): E66.9 - Obesity, unspecified Category: Medical Plan: Diet and exercise (2) GERD (gastroesophageal reflux disease): Code(s): K21.9 - Gastro-esophageal reflux disease without esophagitis Category: Medical Qualifiers: Esophagitis presence: without esophagitis Qualified Code(s): K21.9 - Gastro-esophageal reflux disease without esophagitis Plan: Avoid the foods that causes that usually spicy foods, tomato products, juices, coffee, soda and foods that your sensitive to. After eating do not lie down, allow 3-4 hours before in lie down. And keep the head of bed above 30 degrees to avoid the acid from going up. (3) Hypercholesterolemia: Code(s): E78.00 - Pure hypercholesterolemia, unspecified Category: Medical Plan: Avoid fried foods, chicken skin, eggs, butter margarine, pastries and meat. Be it pork or beef they have a lot of cholesterol LDL goal of less than 130 and triglyceride of less than 150. On simvastatin 10 mg once a day (4) Hypertension: Code(s): I10 - Essential (primary) hypertension Category: Medical Qualifiers: Hypertension type: essential hypertension Qualified Code(s): I10 - Essential (primary) hypertension Plan: Continue with blood pressure medication. Decrease salt intake and exercise patient is on lisinopril 10 mg once a day (5) Type 2 diabetes mellitus with hyperglycemia: Code(s): E11.65 - Type 2 diabetes mellitus with hyperglycemia Category: Medical Qualifiers: Diabetes mellitus medical terminologist insulin use: without medical terminologist use Qualified Code(s): E11.65 - Type 2 diabetes mellitus with hyperglycemia Plan: Long discussion on DM. Decrease the amount of carbohydrate intake, pasta, bread, rice and potatoes are all sugar and that is aside from all the sweet stuff, remember that fruits are good but they are Sweet also. Hemoglobin A1c goal of less than 7.0 patient is advised to repeat the blood work in 3 months if the numbers are high will start pills. Discussed about checking blood sugar discussed about diet discussed about exercise discussed about urine testing discussed about eye exam discussed about foot exam. Declined nutrition referral. For now Orders: Orders Influenza [id number] Immunization Today Z23 - Encounter for immunization Lipid Panel 3 Months E11.65 - Type 2 diabetes mellitus with hyperglycemia, E78.00 - Pure hypercholesterolemia, unspecified Free T4 (Free Thyroxine) 3 Months E11.65 - Type 2 diabetes mellitus with hyperglycemia Thyroid Stimulating Hormone 3 Months E11.65 - Type 2 diabetes mellitus with hyperglycemia Complete Blood Count Auto Diff 3 Months E11.65 - Type 2 diabetes mellitus with hyperglycemia Hemoglobin A1c 3 Months E11.65 - Type 2 diabetes mellitus with hyperglycemia Vitamin D 25-OH Total 3 Months E11.65 - Type 2 diabetes mellitus with hyperglycemia AMB Hemoglobin A1c Today R73.02 - Impaired glucose tolerance (oral) Comprehensive Met. Panel 3 Months E11.65 - Type 2 diabetes mellitus with hyperglycemia Vitamin B12 and Folate 3 Months E11.65 - Type 2 diabetes mellitus with hyperglycemia Microalbumin, Random (w Creat) 3 Months E11.65 - Type 2 diabetes mellitus with hyperglycemia Creatinine Urine 3 Months E11.65 - Type 2 diabetes mellitus with hyperglycemia Medications: New blood-glucose meter (FreeStyle Lite Meter kit) As directed 1 ea 0RF E11.65 - Type 2 diabetes mellitus with hyperglycemia blood sugar diagnostic (FreeStyle Lite Strips) As directed check the BS QD 100 ea 3RF E11.65 - Type 2 diabetes mellitus with hyperglycemia lancets (FreeStyle Lancets) As directed check BS QD 100 ea 3RF E11.65 - Type 2 diabetes mellitus with hyperglycemia Refilled simvastatin 10 mg PO BEDTIME 30 days 30 tabs 4RF E78.00 - Pure hypercholesterolemia, unspecified
== END 2024-02-17 12:01 | disposition home or self-care (01) ==
PROVIDERS: PCP Internal Medicine; Visit Provider Internal Medicine
DX: K21.9 Gastro-esophageal reflux disease without esophagitis (principal); E11.65 Type 2 diabetes mellitus with hyperglycemia; E66.9 Obesity, unspecified; Z68.32 Body mass index [BMI] 32.0-32.9, adult; E78.00 Pure hypercholesterolemia, unspecified; I10 Essential (primary) hypertension; R73.02 Impaired glucose tolerance (oral)

== ENCOUNTER → 2024-02-17 10:21 | Outpatient (BNVA) | payer OTHER, SELFPAY | PROVIDERS: PCP Internal Medicine; Visit Provider Internal Medicine | DX: E66.9 Obesity, unspecified (principal); Z68.32 Body mass index [BMI] 32.0-32.9, adult; E11.65 Type 2 diabetes mellitus with hyperglycemia; I10 Essential (primary) hypertension; E78.00 Pure hypercholesterolemia, unspecified; K21.9 Gastro-esophageal reflux disease without esophagitis; Z71.3 Dietary counseling and surveillance | CPT/HCPCS: 83036; 99212 ==

== ENCOUNTER 2024-03-12 10:00 | Outpatient (AMB) | payer OTHER, SELFPAY ==
--- NOTE | 2024-03-12 10:02 | MHC.PC.OV ---
Vital Signs 03/12/24 10:03 Height 5 ft 6 in Weight 194 lb BMI 31.3 BP 120/60 Blood Pressure Location Lt brachial Position Sitting Pulse 100 Pulse Source Pulse Oximeter Pulse Oximetry (%) 97 Oxygen Delivery Method Room Air Intake Visit Reasons: cough, dizziness Intake Note: Patient is here to follow up on cough for two weeks. OTC not helping with relief. Computer Science Teacher Required: Yes Computer Science Teacher Language: Director Global Intelligence Name: Lyudmila (daughter) Information Interpreted: non-clinical & clinical Aquatic Centre Manager: Present Accompanied by: Daughter Allergies No Known Allergies Allergy (Verified 03/12/24 10:38) Medication List - Last Reconciled 03/12/24 by Hailey Valero PA-C amoxicillin-pot clavulanate 875-125 mg 1 tab PO BID ascorbate calcium (vitamin C) 500 mg PO DAILY aspirin (Adult Aspirin Regimen) 81 mg PO DAILY azithromycin For 250 mg dose pack: take 500 mg today (day 1), then 250 mg for 4 days (days 2-5) PO baclofen 10 mg PO TID PRN [Bathroom grab bar As directed] blood pressure monitor (Blood Pressure Kit) As directed blood sugar diagnostic (FreeStyle Lite Strips) As directed check the BS QD blood-glucose meter (FreeStyle Lite Meter kit) As directed docusate sodium (Colace) 200 mg (2 x 100 mg) PO BEDTIME fexofenadine (Allergy Relief (fexofenadine)) 180 mg PO DAILY 90 days lancets (FreeStyle Lancets) As directed check BS QD lisinopril 10 mg PO DAILY 30 days methylcellulose (laxative) (Citrucel) 500 mg PO TID multivitamin (One-A-Day Essential tablet) 1 tab PO DAILY omeprazole 20 mg PO DAILY polyethylene glycol 3350 (Miralax) 17 grams PO DAILY sennosides-docusate sodium 8.6-50 mg (Senna Plus) 2 tab-caps (2 x 8.6-50 mg) PO BEDTIME PRN 30 days simvastatin 10 mg PO BEDTIME 30 days Tobacco use date assessed: 03/12/24 Fall risk assessment: No Falls in past year Last assessed Fall Risk: 03/12/24 Dental Screening Dental Screen Date: 02/17/24 [facility] Medical History (Updated 03/12/24 @ 10:39 by Hailey Valero PA-C) Colon cancer screening Encounter for removal of [facility] Hospital discharge follow-up Right shoulder pain Migraine Hypertension Hypercholesterolemia Impaired glucose tolerance Obesity (BMI 30-39.9) Allergic rhinitis Fatty liver GERD (gastroesophageal reflux disease) Left shoulder tendinitis Surgical History Hx of varicose vein ligation Hx of colonoscopy Family History Mother No problems noted. Father No problems noted. Other Substance use Social History Housing: Apartment Alcohol intake: never Patient Tobacco Use Status: Never used Tobacco Tobacco use type: Cigarette e-Cigarette/Vaping Use: Never Used Second Hand Smoke Exposure: No service: No Current occupational status: unemployed Cognitive needs: No Hearing needs: No Vision needs: Yes Questionnaire Thrive Questionnaire Date Thrive assessed: 04/25/23 MARSHALL-7 AMB Questionnaire MARSHALL-7 Date MARSHALL - 7 assessed: 04/25/23 Source: Developed by Drs. Alfredito Reardon, Rosetta Adams, Byron Billy and colleagues, with an educational marquita from [employer]. Physical exam (Primary Care) Vital Signs: Last Vital Signs Pulse 100 03/12/24 10:03 BP 120/60 03/12/24 10:03 Pulse Ox 97 03/12/24 10:03 Oxygen Delivery Method Room Air 03/12/24 10:03 BMI result Body Mass Index 31.3 Tobacco/Smoking Status: Tobacco use Status Tobacco use date assessed 03/12/24 03/12/24 10:17 Patient Tobacco Use Status Never used Tobacco 03/12/24 10:17 Tobacco use type Cigarette 03/12/24 10:17 e-Cigarette/Vaping Use Never Used 03/12/24 10:17 Thrive Assessment: Date of Thrive Assessment Date Thrive assessed 04/25/23 03/12/24 10:17 Coding Level of Care Code Est Pt Level 4 (87236) Complex EM visit Add On G2211 Diagnoses Bronchitis J40 Assessment & Plan Assessment & Plan (1) Bronchitis: Code(s): J40 - Bronchitis, not specified as acute or chronic Category: Medical Plan Plan - Consider Augmentin and a zpack for suspected bronchitis. - Monitor for any symptoms progression or development of fever or respiratory distress. - Encourage follow-up if symptoms do not improve or worsen. Medications: New amoxicillin-pot clavulanate 875-125 mg 1 tab PO BID 20 tabs 0RF bronchitis azithromycin For 250 mg dose pack: take 500 mg today (day 1), then 250 mg for 4 days (days 2-5) PO 6 tabs 0RF bronchitis Scribe Plan - Not visible on output: History of Present Illness The patient is a 73-year-old female presenting with a persistent dry cough. The cough began approximately two weeks ago and has progressively worsened, especially over the past weekend. The patient reports that the cough is dry and does not produce phlegm. She denies any sputum production, chest congestion, Chest pain, SOB, TOLLIVER, orthopnea, leg swelling, calf tenderness, black or bloody stools, fever, chills, or headache. No episodes of vomiting or nausea are noted, and she has not experienced any swelling of the legs. There is no associated wheezing or asthma history. The patient has not received any antibiotics in the past two weeks and is seeking a course of antibiotics for her symptoms. Of note we also discussed patient's colonoscopy that she had to 3 years ago is not due for another 10 years. She had a colonoscopy here at [facility]. Patient also had a mammogram this year which was within normal limits is due for mammogram next year. Social History - The patient lives in a smoke-free environment. Review of Systems - Respiratory: Reports dry cough. Denies phlegm production, wheezing, or shortness of breath. - General: Denies fever or chills. - Cardiovascular: Denies leg swelling. Physical Exam Appearance: Alert. Oriented X3. No acute distress. Head: Normal external exam. Normocephalic. Atraumatic. Eyes: Pupils are equal, round, and reactive to light. Extraocular movements intact. Conjunctiva and sclera normal. Eyelids normal. Ears: External auditory canal normal. Tympanic membranes normal. A little bit of fluid in the ears noted. Throat: Pharynx normal. Uvula midline. Moist mucous membranes. No trismus noted. No drooling noted. No muffled voice noted. Neck: Normal inspection. Neck supple. Full range of motion. No adenopathy. Thyroid Normal. No meningeal signs. No neck mass noted. Cardiovascular: Normal heart rate and rhythm. Heart sound normal. No murmurs noted. Pulses normal throughout. Respiratory: No respiratory distress. Painless inspiration. Breath sounds normal. No wheezes/rales/rhonchi noted. Chest nontender. No accessory muscle usage noted or decreased air movement noted. Abdomen: Soft and nontender. No distention noted. No organomegaly noted. No visible injury noted. Back: No costovertebral angle tenderness. Full range of motion noted. Skin: Skin warm and dry. Normal skin color. Normal skin turgor. No rashes/lesions/lacerations noted. Extremities: No lower extremity edema. Extremities exhibit normal range of motion. Extremities nontender. Neuro: Oriented X 3. No motor deficit. No sensory deficit. Reflexes normal. Plan - Consider Augmentin and a zpack for suspected bronchitis. - Monitor for any symptoms progression or development of fever or respiratory distress. - Encourage follow-up if symptoms do not improve or worsen. Patient was informed and verbally consented to the use of an ambient scribe for clinic note documentation during this visit. Discussion Notes I discussed with the patient the likelihood of bronchitis given the duration and nature of her symptoms. I explained the plan to start antibiotic therapy with Augmentin. The risks and benefits of antibiotic treatment were outlined, notably the potential for side effects and antibiotic resistance. We agreed that should her symptoms not improve or if she develops any new symptoms such as fever or increased cough, she should seek further medical evaluation. The patient consented to this plan. The option for additional diagnostics was discussed but deferred pending initial treatment response. I emphasized that smoking cessation in her environment contributes positively to her respiratory health. A follow-up plan was advised should her symptoms not resolve. Patient Instructions - Take prescribed Augmentin and zpack as directed. - Monitor symptoms and seek care if they worsen or new symptoms develop. - Ensure a smoke-free home environment. - Maintain hydration and adequate rest. - Return for follow-up if symptoms do not improve or new symptoms appear.
[2024-03-12 10:03] VITALS: BP 120/60; PULSE 100; O2SAT 97; BMI 31.3
== END 2024-03-12 11:57 | disposition home or self-care (01) ==
PROVIDERS: PCP Internal Medicine; Visit Provider Internal Medicine
DX: J40 Bronchitis, not specified as acute or chronic (principal)

== ENCOUNTER → 2024-03-12 10:00 | Outpatient (BNVA) | payer OTHER, SELFPAY | PROVIDERS: PCP Internal Medicine; Visit Provider Internal Medicine | DX: J40 Bronchitis, not specified as acute or chronic (principal); R42 Dizziness and giddiness | CPT/HCPCS: 99212 ==

== ENCOUNTER 2024-04-21 06:13 | Outpatient (REF) | payer OTHER, SELFPAY ==
[2024-04-21 06:39] LABS: MANUAL DIFF FLAG NO
[2024-04-21 07:34] LABS: Basophils Absolute Auto 0.1 X10*3/uL (0.0-0.2); Basophils Percent Auto 0.8 % (0-2); Eosinophils Absolute Auto 0.1 X10*3/uL (0.0-0.4); Eosinophils Percent Auto 1.3 % (0-4); Hematocrit 43.6 % (37.0-47.0); Hemoglobin 14.2 g/dl (12.0-16.0); Imm Gran Abs Auto 0.03 X10*3/uL (0.00-0.03); Imm Gran Pct Auto 0.4 % (0.0-0.4); Lymphocytes Absolute Auto 1.7 X10*3/uL (1.2-4.9); Lymphocytes Percent Auto 22.6 % (20-40); Mean Corpuscular HGB Conc 32.6 g/dl (31.0-35.0); Mean Corpuscular Hemoglobin 26.9 pg (27.0-33.0); Mean Corpuscular Volume 82.7 fL (80.0-98.0); Mean Platelet Volume 11.2 fL (9.4-12.3); Monocytes Absolute Auto 0.7 X10*3/uL (0.1-1.2); Monocytes Percent Auto 9.5 % (2-11); Neutrophils Percent Auto 65.4 % (45-73); Platelet Count 257 X10*3/uL (160-400); Red Blood Count 5.27 X10*6/uL (4.20-5.50); White Blood Count 7.7 X10*3/uL (4.8-10.8)
[2024-04-21 07:49] LABS: Estimated Average Glucose 137 mg/dL; Hemoglobin A1C 170.4633 umol/L; Hemoglobin A1c % 6.4 % (<6.0); Total Hemoglobin (HGBA1C) 3712.5663 umol/L
[2024-04-21 08:10] LABS: Alanine Aminotransferase 37 U/L (0-31); Albumin Level 4.2 g/dL (3.5-5.0); Alkaline Phosphatase 82 U/L (39-117); Anion Gap 14 (12-20); Aspartate Amino Transferase 34 U/L (5-31); Bilirubin Total 0.3 mg/dL (0.0-1.0); Blood Urea Nitrogen 18 mg/dL (9-16); Calcium 9.4 mg/dL (8.4-10.2); Carbon Dioxide 25 mmol/L (22-29); Chloride 106 mmol/L (96-108); Cholesterol 191 mg/dL (<200); Estimated Glomerular Filt Rate > 60; Glucose Random 111 mg/dL (60-115); HDL Cholesterol 57 mg/dL (>40); LDL Cholesterol Calculated 117 mg/dL (<100); Sodium 141 mmol/L (135-145); Total Protein 7.9 g/dL (6.5-8.0); Triglycerides 89 mg/dL (<150)
[2024-04-21 08:29] LABS: Creatinine Urine 314.22 mg/dL; Microalbum/Creatinine Ratio Ur 18.7 ug/mg cr (<30)
[2024-04-21 08:30] LABS: Folate 14.4 ng/mL (> or = 4.0); Vitamin B12 909 pg/mL (200-900)
[2024-04-21 08:32] LABS: Free T4 (Free Thyroxine) 1.04 ng/dL (0.71-1.85); Thyroid Stimulating Hormone 2.46 uIU/mL (0.32-4.0)
== END 2024-04-21 06:14 | disposition home or self-care (01) ==
LOC: HO.LAB 06:13
PROVIDERS: PCP Internal Medicine; Visit Provider Internal Medicine
DX: E11.65 Type 2 diabetes mellitus with hyperglycemia (principal); E78.00 Pure hypercholesterolemia, unspecified
CPT/HCPCS: 36415; 80053; 80061; 82043; 82306; 82570; 82607; 82746; 83036; 84439; 84443; 85025

== ENCOUNTER 2024-04-30 10:16 | Outpatient (AMB) | payer OTHER, SELFPAY ==
[2024-04-30 10:36] VITALS: BP 128/72; PULSE 70; O2SAT 98; BMI 31.3
--- NOTE | 2024-04-30 10:36 | A.OFFPC_ITS ---
Vital Signs 04/30/24 10:36 Height 5 ft 6 in Weight 194 lb BMI 31.3 BP 128/72 Blood Pressure Location Lt brachial Position Sitting Pulse 70 Pulse Source Pulse Oximeter Pulse Oximetry (%) 98 Oxygen Delivery Method Room Air Intake Visit Reasons: Annual Exam Allergies No Known Allergies Allergy (Verified 04/30/24 10:37) Medication List - Last Reconciled 04/30/24 by Andrea Luna MD ascorbate calcium (vitamin C) 500 mg PO DAILY aspirin (Adult Aspirin Regimen) 81 mg PO DAILY baclofen 10 mg PO TID PRN [Bathroom grab bar As directed] blood pressure monitor (Blood Pressure Kit) As directed blood sugar diagnostic (FreeStyle Lite Strips) As directed check the BS QD blood-glucose meter (FreeStyle Lite Meter kit) As directed docusate sodium (Colace) 200 mg (2 x 100 mg) PO BEDTIME lancets (FreeStyle Lancets) As directed check BS QD lisinopril 10 mg PO DAILY 30 days methylcellulose (laxative) (Citrucel) 500 mg PO TID multivitamin (One-A-Day Essential tablet) 1 tab PO DAILY omeprazole 20 mg PO DAILY polyethylene glycol 3350 (Miralax) 17 grams PO DAILY simvastatin 10 mg PO BEDTIME 30 days Tobacco use date assessed: 04/30/24 Fall risk assessment: No Falls in past year Last assessed Fall Risk: 04/30/24 Dental Screening Dental Screen Date: 04/30/24 Did you have a dental visit in the last 12 months?: Yes Did you have a dental problem in the last 6 months where you did not have access to dental care?: No Was dental information given to patient?: Patient has dentist HPI Annual Exam HPI Details The patient is a 73-year-old female presenting for a physical exa mination. She has an ongoing history of obesity, GERD, impaired glucose tolerance, hypertension, hypercholesterolemia, and diabetes mellitus. Her condition of GERD has been long-standing and managed with lifestyle adjustments and medication adherence as implied by her history. The hypertension is controlled with a regimen that includes lisinopril 10 mg weekly. The patient's hypercholesterolemia was observed with an LDL level requiring intervention and triglycerides measured at 150 mg/dL. The patient was last seen in February 2024 and has a history of bronchitis in February, which was treated with antibiotics and anti-inflammatory medication, leading to resolution. Recent blood work from April 21 shows a stable hemoglobin A1c level of 6.4%, suggesting controlled diabetes. Liver function tests remain stable, vitamin D, folic acid, and thyroid function test results are within normal limits, and proteinuria is absent. The patient's last colonoscopy was in September 2022, with the mammogram up to date as of December 2023, and normal bone density results reported from April 2022. - Colonoscopy: Last completed September 2022. - Mammogram: Last conducted December 2023 . - Bone Density: Normal results as of Apr. - Blood Pressure Management: Controlled with lisinopril 10 mg weekly. - Cholesterol Management: LDL managed wi th a combination of diet, exercise, and cesacetine 10 mg at bedtime. - Diabetes Management: Hemoglobin A1c at 6.4% with a target below 6.5%. - Lifestyle: Recommendations for diet an d exercise to manage obesity and associated metabolic conditions. - Labs: Normal blood count, normal renal function, hemoglobin A1c 6.4%, elevated cholesterol with LDL levels, and normal thyroid function. - Bone Density: Normal as of May 07. [facility] Medical History (Updated 04/30/24 @ 10:57 by Andrea Luna MD) Impaired glucose tolerance Colon cancer screening (~10/09/22) Encounter for removal of [facility] discharge follow-up Right shoulder pain Migraine Hypertension Hypercholesterolemia Obesity (BMI 30-39.9) Allergic rhinitis Fatty liver GERD (gastroesophageal reflux disease) Left shoulder tendinitis Surgical History Hx of varicose vein ligation Hx of colonoscopy Family History Mother No problems noted. Father No problems noted. Other Substance use Social History Housing: Apartment Alcohol intake: never Patient Tobacco Use Status: Never used Tobacco Tobacco use type: Cigarette e-Cigarette/Vaping Use: Never Used Second Hand Smoke Exposure: No service: No Current occupational status: unemployed Cognitive needs: No Hearing needs: No Vision needs: Yes Questionnaire PHQ-9 Over the last 2 weeks, how often have you been bothered by any of the following problems? 1. Little interest or pleasure in doing things: not at all 2. Feeling down, depressed, or hopeless: not at all 3. Trouble falling or staying asleep, or sleeping too much: not at all 4. Feeling tired or having little energy: not at all 5. Poor appetite or overeating: not at all 6. Feeling bad about yourself - or that you are a failure or have let yourself or your family down: not at all 7. Trouble concentrating on things, such as reading the newspaper or watching television: not at all 8. Moving or speaking so slowly that other people could have noticed. Or the op posite - being so fidgety or restless that you have been moving around a lot more than usual: not at all 9. Thoughts that you would be better off or of hurting yourself in some way: not at all Total score: 0 Source: Developed by Drs. Alfredito Reardon, Rosetta Adams, Byron Billy and colleagues, with an educational marquita from [employer]. Thrive Questionnaire Date Thrive assessed: 04/30/24 I am a: Patient What is your living situation today?: I have a steady place to live Within the past 12 months, did the food you bought not last and you didn't have the money to get more?: Never true Within the past 12 months, did you worry whether your food would run out before you got money to buy more?: Never true Do you have trouble paying for medicines?: No Do you have trouble getting transportation to medical appointments?: No Do you have trouble paying your heating and electricity bill?: No Do you have trouble taking care of your child, family member or friend?: No Do you have trouble with day-to-day activities such as bathing, preparing meals, shopping, managing finances, etc.?: No Are you currently unemployed and looking for a job?: No Are you interested in more education?: No Please select the resources that you would like help with: None Currently or been in a relationship where the following occur: No concerns reported THRIVE Score: 0 AUDIT C Alcohol Use Questionnaire (AUDIT-C) 1. How often do you have a drink containing alcohol?: Never Total Score: 0 MARSHALL-7 AMB Questionnaire MARSHALL-7 Date MARSHALL - 7 assessed: 04/30/24 Feeling nervous, anxious, or on edge: 0 = Not at all Not being able to stop or control worryin = Not at all Worrying too much about different things: 0 = Not at all Trouble relaxin = Not at all Being so restless that it is hard to sit still: 0 = Not at all Becoming easily annoyed or irritable: 0 = Not at all Feeling afraid as if something awful might happen: 0 = Not at all Total MARSHALL-7 score (0-4 normal; 5-9 mild; 10-14 moderate; 15-21 severe): 0 Source: Developed by Drs. Alfredito Reardon, Rosetta Adams, Byron Billy and colleagues, with an educational marquita from [employer]. Review of Systems Const Denies poor appetite and Denies weakness Eyes Denies no additional complaints ENT Reports Normal hearing present, Denies dizziness, Denies nasal congestion, Denies tinnitus and Denies sore throat Card Denies chest pain, Denies syncope, Denies rapid heart rate and Denies dyspnea Resp Denies cough and Denies dyspnea GI Denies change in stool character, Reports constipation, Denies diarrhea, Denies nausea and Denies vomiting Denies urinary frequency, Denies difficulty voiding and Denies dysuria Neuro Reports Normal hearing present, Denies confusion, Denies dizziness, Denies syncope and Denies weakness Psych Denies confusion Physical exam (Primary Care) Vital Signs: Last Vital Signs Pulse 70 04/30/24 10:36 BP 128/72 04/30/24 10:36 Pulse Ox 98 04/30/24 10:36 Oxygen Delivery Method Room Air 04/30/24 10:36 BMI result Body Mass Index 31.3 Tobacco/Smoking Status: Tobacco use Status Tobacco use date assessed 04/30/24 04/30/24 10:42 Patient Tobacco Use Status Never used Tobacco 04/30/24 10:42 Tobacco use type Cigarette 04/30/24 10:42 e-Cigarette/Vaping Use Never Used 04/30/24 10:42 PHQ-9: PHQ-9 Score PHQ-9: Total score 0 04/30/24 10:42 Thrive Assessment: Date of Thrive Assessment Date Thrive assessed 04/30/24 04/30/24 10:42 Currently or been in a relationship where the following occur: No concerns reported Const General: No confusion Orientation/consciousness: No confusion HENMT Head: Yes normocephalic Ears: external ears normal and TM's normal bilaterally Face and sinus: Yes normal facial exam Mouth: moist mucous membranes Throat: Yes tonsils normal Eyes Conjunctivae: conjunctivae normal Pupils: Equal, round and reactive pupils present and Pupil accommodation reflex normal Direct Ophthalmoscopy: normal light reflex Neck Neck: No lymphadenopathy Thyroid: Thyroid normal Chest Chest palpation & inspection: normal inspection of the chest Resp Effort & Inspection: normal respiratory effort and no audible wheezes Auscultation: clear to auscultation bilaterally, no crackles, no wheezes and lung sounds not diminished Cardio Rate: regular rate Rhythm: regular rhythm Peripheral pulses: radial pulses present and dorsalis pedis present GI Palpation (GI): no masses Auscultation: normal bowel sounds and normoactive bowel sounds Rectal Exam - Female: deferred Skin General skin exam: no rashes or lesions noted Rashes: no rashes Neuro General: No confusion Cranial nerves: Yes Equal, round and reactive pupils present and Yes Normal hearing present Cognition (Neuro): normal cognition Gait exam (Neuro): Normal gait present Motor exam (neuro): 5/5 motor strength present throughout Deep tendon reflexes (DTR's): Right brachioradialis reflex intensity grade: 2+, Left brachioradialis reflex intensity grade: 2+, Right patellar reflex intensity grade: 2+ and Left patellar reflex intensity grade: 2+ Extrem General: No edema Coding Level of Care Code New Pt Prev Care >65yr (11859) Diagnoses Annual physical exam Z00.00 Type 2 diabetes mellitus with hyperglycemia, without long-term current use of insulin E11.65 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 Hemoglobin A1c goal of less than 7.0 patient is diet controlled (3) Hypertension: Code(s): I10 - Essential (primary) hypertension Category: Medical Qualifiers: Hypertension type: essential hypertension Qualified Code(s): I10 - Essential (primary) hypertension Plan: Continue with blood pressure medication. Decrease salt intake and exercise patient on lisinopril 10 mg once a day (4) Hypercholesterolemia: Code(s): E78.00 - Pure hypercholesterolemia, unspecified Category: Medical Plan: Avoid fried foods, chicken skin, eggs, butter margarine, pastries and meat. Be it pork or beef they have a lot of cholesterol LDL goal of less than 100 and triglyceride of less than 150 on simvastatin 10 mg at bedtime not at goal yet. (5) Obesity (BMI 30-39.9): Code(s): E66.9 - Obesity, unspecified Category: Medical Plan: Diet and exercise (6) GERD (gastroesophageal reflux disease): Code(s): K21.9 - Gastro-esophageal reflux disease without esophagitis Category: Medical Qualifiers: Esophagitis presence: without esophagitis Qualified Code(s): K21.9 - Gastro-esophageal reflux disease without esophagitis Plan: Avoid the foods that causes that usually spicy foods, tomato products, juices, coffee, soda and foods that your sensitive to. After eating do not lie down, allow 3-4 hours before in lie down. And keep the head of bed above 30 degrees to avoid the acid from going up. Plan 1. 5%: - Manage hypertension with current lisinopril dosage, ensuring periodic review of blood pressure stability. - Address elevated cholesterol with lipid-lowering agents, including cesacetine 10 mg at bedtime. - Reinforce dietary and exercise interventions to help with weight management and cardiovascular risk reduction. - Arrange follow-up for routine health maintenance, including future colonoscopy, mammography, and bone density as per screening guidelines. During our consultation, we discussed the current management of the patient's chronic conditions, including hypertension, diabetes, and hypercholesterolemia. The patient's blood pressure remains well controlled on lisinopril, and her diabetes is managed with a hemoglobin A1c of 6.4%. We reviewed the importance of lipid management due to elevated cholesterol, opting for ongoing treatment with cesacetine to lower LDL levels. I emphasized the role of lifestyle measures such as diet and exercise in supporting weight management and reducing cardiovascular risk. The patient consented to continue the current treatment regimen and agreed to follow preventive care recommendations. - Continue taking lisinopril 10 mg weekly as prescribed. - Adhere to prescribed cesacetine 10 mg at bedtime for cholesterol management. - Maintain a balanced diet and incorporate regular physical activity into daily routines. - Monitor blood sugar levels as advised and report any significant changes. - Schedule routine follow-ups for blood work and screening tests as recommended. - Seek medical attention if experiencing new or worsening symptoms. Orders: Orders Comprehensive Met. Panel 3 Months E78.00 - Pure hypercholesterolemia, unspecified Lipid Panel 3 Months E78.00 - Pure hypercholesterolemia, unspecified Hemoglobin A1c 3 Months E78.00 - Pure hypercholesterolemia, unspecified Medications: Refilled methylcellulose (laxative) (Citrucel) 500 mg PO TID 90 tabs 5RF
--- OUTSIDE RECORDS SUMMARY | 2024-04-30 10:59 | XMS_ITS | Continuity of Care Document ---
Author Organization [facility] Address [address] [place] [address] Phone Care Team Providers Care Operations And Maintenance Technician Name Role Phone Chito MCGOVERN, RVT, CHRISTIANO, Alfredito Unavailable U navailable Allergies, Adverse Reactions, Alerts Substance Reaction Status Criticality No Known Allergies Active No Inform ation Procedures Procedure Date Office/Outpt E&M Established 15 Mins- CT & [place] Duplex Scan-extrem Veins; Uni/ CT & MA S Duplex Scan-extrem Veins; Uni/ CT & MA A Ultrason Guidan Needle Bx-rad- CT & MA A Inj Sclerosing Solution; Sngl- CT & MA A Office/Outpt E&M Established 15 Mins- CT & MA Duplex Scan-extrem Veins; Uni/ CT & MA J Office/Outpt E&M Established 15 Mins Aug Duplex Scan-extrem Veins; Uni/ Varithena, Single Truncal Vein Endovenous Laser, 1st Vein Endovenous laser vein addon Offic/outpt E&m Estab 5 Min Trial - Tele medicine Office/Outpt E&M Established 15 Mins May Duplex Scan-extrem Veins; Uni/ Office/Oupt E&M New Pt 30 Mins Advance Directives Directive Yes / No Effective Date File Name Other Directive No 11/26/2023 N/A WARNING:The information contained in this section is historical and is provided for information only and does not constitute a legal document or any assurance that the information is still accurate. Please verify the information with the hedrick of the legal document before using it for clinical purposes. Encounters Encounter Description Practice Location Reason(s) For Visit Diagnoses Date Provider Providers Copied on Encounter Office/Outpt E&M Established 15 Mins- CT & [place] [facility], [address] [place] [address] Dr [facility] [place] [id number], [place] tel:[phone] CV[facility] - [facility] Venous insufficiency (chronic) (peripheral)E ssential (primary) hypertension Nov- 4 Chito MCGOVERN RVT, RPVI Robert. [address] [place] [address], [place], [place], [id number] , [place]. tel:[phone] Referring Provider: Andrea Luna MD, [address] [place] [address] [facility] [address] [facility] [place], [address]. tel:[phone] [facility], [address] [place] [address] Dr Gaston 1000Tee sanford [place], [id number], [place] tel:[phone] [facility] Chronic venous hypertension (idiopathic) with other complications of left lower extremity Nov- 4 Chito MCGOVERN RVT, RPVI Robert. [address] [place] [address], [facility] [place], [id number] , [place]. tel:[phone] Referring Provider: Andrea Luna MD, [address] [place] [address] Dr [address] [facility] [place], [address]. tel:[phone] Kevin [facility], [address] [place] [address] Dr Gaston [address]Tee sanford [place], [id number], [place] tel:[phone] CV - [facility] Encounter for follow-up examination after completed treatment for conditions other than malignant nePain in left leg 4 Chito MCGOVERN RVT, RPVI Robert. [address] [place] [address], [place] [address], [facility] [place], [id number] , [place]. [phone] Referring Provider: Andrea Luna MD, [address] [facility] [address] [place] [address] [place], [address]. tel:[phone] [facility], [address] [place] [address] Dr Gaston [address]Suite Tee Bernstein [place], [id number], [place] tel:[phone] [facility] - [facility] Chronic venous hypertension (idiopathic) with inflammation of left lower extremity 4 Winter Davies . [address] [facility] [address], [address], [place], [place], [id number] , [place]. [phone] Referring Provider: Andrea Luna MD, [address] [facility] [address] Gaston [address] [place] [address] [place], [address]. tel:[phone] Office/Outpt E&M Established 15 Mins- CT & [facility], [address] [place] [address] Dr Gaston [place] [address]T[place], [id number], [place] tel:[phone] CVR - [facility] Chronic venous hypertension (idiopathic) with other complications of left lower extremityEsse ntial (primary) hypertension 4 Chito MCGOVERN RVT, CHRISTIANO Glaser. [address] [facility], Suite [facility], [place], [place], [id number] , [place]. [phone] Referring Provider: Andrea Luna MD, [address] [facility] [address] [place] [address] [place], [address]. tel:[phone] [facility] [facility] Pabl[facility], [address] [place] [address] Dr Gaston [address]Tee [place], [id number], [place] tel:[phone] CV[facility] - [facility] Encounter for follow-up examination after completed treatment for conditions other than malignant neVaricose veins of left lower extremity with pain 4 Chito MCGOVERN RVT, CHRISTIANO Glaser. [address] [facility], [address], [place], [place], [id number] , [place]. tel:[phone] Referring Provider: Andrea Luna MD, [address] [facility] [address] [facility] In [facility], [place], [address]. tel:[phone] Office/Outpt E&M Established 15 Mins Kevin [facility], [address] [place] [address] [address]Tee [place], [id number], [place] tel:[phone] CV[facility] - [facility] Chronic venous htn w oth comp of bilateral low extrmBody mass index (BMI) 32.0-32.9, adult Freddie- 3 Sohail MCGOVERN FACS RVT RPROWDY Henriquez. [address] [facility], [place] [address], [place], [address], [place]. [phone] Referring Provider: Andrea Luna MD, [address] [place] [address] Dr [address] [facility] [place], [address]. tel:[phone] [place] [facility] Pablito [facility], [address] [place] [address] [address]Tee [place], [id number], [place] tel:[phone] [facility] - [facility] Encntr for f/u exam aft trtmt for cond oth than malig neoplmVenous insufficiency (chronic) (peripheral) 3 Sohail MCGOVERN FACS RVT RPROWDY Henriquez. [address] [facility], [place] [address], [place], [address], [place]. [phone] Referring Provider: Lc Sauceda MD FACS RVT [facility], [address] [place] [address], [place], [address]. tel:[phone] Kevin [facility], [address] [place] [address] [address]Tee [place], [id number], [place] tel:[phone] [facility] - [facility] Venous insufficiency (chronic) (peripheral) 3 Sohail MCGOVERN FACS RVT RPROWDY Henriquez. [address] [facility], Suite [facility], [place], [address], [place]. [phone] Referring Provider: Andrea Luna MD, [address] [facility] [address] [facility] [place], [address]. tel:[phone] [facility], [address] [place] [address] Dr Gaston [address]Tee [place], [id number], [place] tel:[phone] [place] [facility] [place] Venous insufficiency (chronic) (peripheral) 3 Sohail MCGOVERN FACS RVT CHRISTIANO Henriquez. [address] [place] [address], [place], [address], [place]. [phone] Referring Provider: Andrea Luna MD, [address] [facility] [address] [place] [address] [place], [address]. tel:[phone] Offic/outpt E&m Estab 5 Min Trial - Telemedicine [facility], [address] [place] [address] Dr Gaston [address]Tee [place], [id number], [place] tel:[phone] [place] [facility] [place] Venous insufficiency (chronic) (peripheral) 3 Sohail MCGOVERN FACS T CHRISTIANO Henriquez. [address] [place] [address], [place], [address], [place]. [phone] Referring Provider: Andrea Luna MD, [address] [facility] [address] [place], [address]. tel:[phone] Office/Outpt E&M Established 15 Mins [facility], [address] [place] [address] Dr Gaston [address]Tee [place], [id number], [place] tel:[phone] [place] Body mass index (BMI) 32.0-32.9, adultVenous insufficiency (chronic) (peripheral) 3 Sohail MCGOVERN FACS RVT CHRISTIANO Henriquez. [address] [place] [address], [place], [address], [place]. [phone] Referring Provider: Andrea Luna MD, [address] [facility] [address] [place] [address] [place], [address]. tel:[phone] Kevin [facility], [address] [place] [address] [address]Tee [place], [id number], [place] tel:[phone] CVR - [place] - [place] Venous insufficiency (chronic) (peripheral) 3 Sohail MCGOVERN [facility] CHRISTIANO Henriquez. [address] [place] [address], [place] [address], [place], [address], [place]. tel:[phone] Referring Provider: Andrea Luna MD, [address] [facility] [address] [facility] [place], [address]. tel:[phone] Office/Oupt E&M New Pt 30 Mins [facility], [address], [place], [id number], [place] tel:[phone] [place] Venous insufficiency (chronic) (peripheral) 3 Sohail MCGOVERN FACS [facility] CHRISTIANO Henriquez. [address] [place] [address], [place] [address], [place], [address], [place]. tel:[phone] Referring Provider: Andrea Luna MD, [address] [facility] [address] [facility] [place], [address]. tel:[phone] Family History Family Member Type Diagnosis Age At Onset No Information Payers Payer name Insurance type Covered republican ID eyad stafford(s) [facility] CI [id number] Social History Type Description Quantity Date Captured Comments Alcohol Use Details Unknown Caffeine Use Details Unknown Tobacco Use Status Current non-smoker Smoking Status Never Smoker Non-Smoking Tobacco Use Details : No Details Available : No Details Available Sex Female Vital Signs Date / Time: Height Weight BMI Pulse Rate Blood Pressure Temperature Respiratory Rate Body Surface Area Head Circumference Head Circ. Percentile Wt./Hdruv. Percentile BMI percentile Pulse Ox Inhaled Ox 91.630 kg (202.00 lbs) 32.6 0 kg/m eter (2) 120/80 mm[Hg] Chief Complaint And Reason For Visit No Information Reason For Referral Reason For Referral No Information Plan Of Treatment Date Type Action Status Goal Diet education completed Goal Diet education completed Goal Diet education completed Goal Tobacco cessation counseling completed Goal Tobacco cessation counseling completed Goal Diet education completed Referral Ordered: Weight management: Referral to physician timeframe: 3 Months (related to Body mass index (BMI) 32.0-32.9, adult) ordered Referral Ordered: Weight management: Referral to physician timeframe: 3 Months (related to Body mass index (BMI) 32.0-32.9, adult) ordered Referral Ordered: Weight management: Referral to physician timeframe: 3 Months (related to Body mass index (BMI) 32.0-32.9, adult) ordered History Of Present Illness Encounter Date Complaint History Of Prese nt Illness No Information Functional Status Date Functional Assessmen t No Information Instructions Date Instruction Additional Infor nan Diet education Related to Body mass index (BMI) 32.0-32.9, adult Giving Encouragement to exercise Related to Body mass index (BMI) 32.0-32.9, adult Patient education booklet given Related to Venous insufficiency (chronic) (peripheral) Lifestyle education Related to B meg mass index (BMI) 32.0-32.9, adult Compression stocking usage as conservative measure Related to Venous insufficiency (chronic) (peripheral) Giving Encouragement to exercise Related to Body mass index (BMI) 32.0-32.9, adult Lifestyle education Related to B meg mass index (BMI) 32.0-32.9, adult Compression stocking usage as conservative measure Related to Chronic venous hypertension (idiopathic) with other complications of left lower extremity Patient education booklet given Related to Chronic venous hypertension (idiopathic) with other complications of left lower extremity Diet education Related to Body mass index (BMI) 32.0-32.9, adult Giving Encouragement to Exercise Related to Body mass index [BMI] 32.0-32.9, adult Diet education Related to Body mass index [BMI] 32.0-32.9, adult Dietary needs education Related to Body mass index [BMI] 32.0-32.9, adult Diet education Related to Body mass index (BMI) 32.0-32.9, adult Giving Encouragement to exercise Related to Body mass index (BMI) 32.0-32.9, adult Lifestyle education Related to B meg mass index (BMI) 32.0-32.9, adult Patient education booklet given Related to Venous insufficiency (chronic) (peripheral) Compression stocking usage as conservative measure Related to Venous insufficiency (chronic) (peripheral) Assessments Type Assessment Date No Information Patient Care Teams Name Effective Dates (start - stop) Status Members No Information
== END 2024-04-30 11:20 | disposition home or self-care (01) ==
PROVIDERS: PCP Internal Medicine; Visit Provider Internal Medicine
DX: Z00.00 Encounter for general adult medical examination without abnormal findings (principal); E11.65 Type 2 diabetes mellitus with hyperglycemia; E66.9 Obesity, unspecified; Z68.31 Body mass index [BMI] 31.0-31.9, adult; I10 Essential (primary) hypertension; E78.00 Pure hypercholesterolemia, unspecified; K21.9 Gastro-esophageal reflux disease without esophagitis

== ENCOUNTER → 2024-04-30 10:16 | Outpatient (BNVA) | payer OTHER, SELFPAY | PROVIDERS: PCP Internal Medicine; Visit Provider Internal Medicine | DX: Z00.00 Encounter for general adult medical examination without abnormal findings (principal); E11.65 Type 2 diabetes mellitus with hyperglycemia; E78.00 Pure hypercholesterolemia, unspecified; E66.9 Obesity, unspecified; I10 Essential (primary) hypertension; K21.9 Gastro-esophageal reflux disease without esophagitis | CPT/HCPCS: 99397 ==

== ENCOUNTER 2024-08-05 09:12 | Outpatient (REF) | payer OTHER, SELFPAY ==
[2024-08-05 09:57] LABS: Estimated Average Glucose 128 mg/dL; Hemoglobin A1C 154.3648 umol/L; Hemoglobin A1c % 6.1 % (<6.0); Total Hemoglobin (HGBA1C) 3582.8864 umol/L
[2024-08-05 11:03] LABS: Creatinine Urine 195.47 mg/dL
[2024-08-05 12:01] LABS: Alanine Aminotransferase 27 U/L (0-31); Albumin Level 4.3 g/dL (3.5-5.0); Alkaline Phosphatase 81 U/L (39-117); Anion Gap 11 (12-20); Aspartate Amino Transferase 31 U/L (5-31); Bilirubin Total 0.4 mg/dL (0.0-1.0); Blood Urea Nitrogen 16 mg/dL (9-16); Calcium 9.4 mg/dL (8.4-10.2); Carbon Dioxide 30 mmol/L (22-29); Chloride 106 mmol/L (96-108); Cholesterol 184 mg/dL (<200); Estimated Glomerular Filt Rate > 60; Glucose Random 96 mg/dL (60-115); HDL Cholesterol 58 mg/dL (>40); LDL Cholesterol Calculated 109 mg/dL (<100); Potassium 4.7 mmol/L (3.3-5.1); Sodium 142 mmol/L (135-145); Total Protein 7.6 g/dL (6.5-8.0); Triglycerides 85 mg/dL (<150)
== END 2024-08-05 09:13 | disposition home or self-care (01) ==
LOC: HO.LAB 09:12
PROVIDERS: PCP Internal Medicine; Visit Provider Internal Medicine
DX: E11.65 Type 2 diabetes mellitus with hyperglycemia (principal); E78.00 Pure hypercholesterolemia, unspecified
CPT/HCPCS: 36415; 80053; 80061; 82570; 83036

== ENCOUNTER 2024-08-07 09:54 | Outpatient (AMB) | payer OTHER, SELFPAY ==
[2024-08-07 09:56] VITALS: BP 124/68; PULSE 67; TEMP 36.2; O2SAT 98; BMI 29.9
--- NOTE | 2024-08-07 09:56 | MHC.PC.OV ---
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 Required: No Accompanied by: Son Allergies No Known Allergies Allergy (Verified 04/30/24 10:37) Medication List - Last Reconciled 08/07/24 by Andrea Luna MD ascorbate calcium (vitamin C) 500 mg PO DAILY aspirin (Adult Aspirin Regimen) 81 mg PO DAILY baclofen 10 mg PO TID PRN [Bathroom grab bar As directed] blood pressure monitor (Blood Pressure Kit) As directed blood sugar diagnostic (FreeStyle Lite Strips) As directed check the BS QD blood-glucose meter (FreeStyle Lite Meter kit) As directed docusate sodium (Colace) 200 mg (2 x 100 mg) PO BEDTIME lancets (FreeStyle Lancets) As directed check BS QD lisinopril 10 mg PO DAILY 30 days methylcellulose (laxative) (Citrucel) 500 mg PO TID multivitamin (One-A-Day Essential tablet) 1 tab PO DAILY omeprazole 20 mg PO DAILY polyethylene glycol 3350 (Miralax) 17 grams PO DAILY simvastatin 10 mg PO BEDTIME 30 days Tobacco use date assessed: 04/30/24 Fall risk assessment: No Falls in past year Last assessed Fall Risk: 08/07/24 Dental Screening Dental Screen Date: 04/30/24 [facility] Medical History (Updated 08/07/24 @ 10:11 by Andrea Luna MD) Impaired glucose tolerance Colon cancer screening (~10/09/22) [facility] discharge follow-up Right shoulder pain Migraine Hypertension Hypercholesterolemia Obesity (BMI 30-39.9) Allergic rhinitis Fatty liver GERD (gastroesophageal reflux disease) Left shoulder tendinitis Surgical History Hx of varicose vein ligation Hx of colonoscopy Family History Mother No problems noted. Father No problems noted. Other Substance use Social History Housing: Apartment Alcohol intake: never Patient Tobacco Use Status: Never used Tobacco Tobacco use type: Cigarette e-Cigarette/Vaping Use: Never Used Second Hand Smoke Exposure: No service: No Current occupational status: unemployed Cognitive needs: No Hearing needs: No Vision needs: Yes Questionnaire Thrive Questionnaire Date Thrive assessed: 04/30/24 I am a: Patient What is your living situation today?: I have a steady place to live Within the past 12 months, did the food you bought not last and you didn't have the money to get more?: Never true Within the past 12 months, did you worry whether your food would run out before you got money to buy more?: Never true Do you have trouble paying for medicines?: No Do you have trouble getting transportation to medical appointments?: No Do you have trouble paying your heating and electricity bill?: No Do you have trouble taking care of your child, family member or friend?: No Do you have trouble with day-to-day activities such as bathing, preparing meals, shopping, managing finances, etc.?: No Are you currently unemployed and looking for a job?: No Are you interested in more education?: No Please select the resources that you would like help with: None Currently or been in a relationship where the following occur: No concerns reported THRIVE Score: 0 MARSHALL-7 AMB Questionnaire MARSHALL-7 Date MARSHALL - 7 assessed: 04/30/24 Source: Developed by Drs. Alfredito Reardon, Rosetta Adams, Byron Billy and colleagues, with an educational marquita from [employer]. Physical exam (Primary Care) Vital Signs: Last Vital Signs Temp 97.1 F 08/07/24 09:56 Pulse 67 08/07/24 09:56 BP 124/68 08/07/24 09:56 Pulse Ox 98 08/07/24 09:56 Oxygen Delivery Method Room Air 08/07/24 09:56 BMI result Body Mass Index 29.9 Tobacco/Smoking Status: Tobacco use Status Tobacco use date assessed 04/30/24 08/07/24 10:04 Patient Tobacco Use Status Never used Tobacco 08/07/24 10:04 Tobacco use type Cigarette 08/07/24 10:04 e-Cigarette/Vaping Use Never Used 08/07/24 10:04 Thrive Assessment: Date of Thrive Assessment Date Thrive assessed 04/30/24 08/07/24 10:04 Currently or been in a relationship where the following occur: No concerns reported Const General: alert; No acute distress Eyes Conjunctivae: conjunctivae normal Resp Auscultation: clear to auscultation bilaterally Cardio Rate: regular rate Rhythm: regular rhythm GI Inspection: Yes normal to inspection Extrem General: Yes normal to inspection and No edema Coding Level of Care Code Est Pt Level 4 (85425) Complex EM visit Add On G2211 Diagnoses Type 2 diabetes mellitus with hyperglycemia, without long-term current use of insulin E11.65 Diabetes mellitus terminal superintendent insulin use: without jail use Essential hypertension I10 Hypertension type: essential hypertension Hypercholesterolemia E78.00 Gastroesophageal reflux disease without esophagitis K21.9 Esophagitis presence: without esophagitis Overweight (BMI 25.0-29.9) E66.3 Assessment & Plan Assessment & Plan (1) Type 2 diabetes mellitus with hyperglycemia: Comment: eye and lasik Code(s): E11.65 - Type 2 diabetes mellitus with hyperglycemia Category: Medical Qualifiers: Diabetes mellitus terminal superintendent insulin use: without jail use Qualified Code(s): E11.65 - Type 2 diabetes mellitus with hyperglycemia Plan: Decrease the amount of carbohydrate intake, pasta, bread, rice and potatoes are all sugar and that is aside from all the sweet stuff, remember that fruits are good but they are Sweet also. Hemoglobin A1c goal of less than 7.0. Patient on diet control (2) Hypertension: Code(s): I10 - Essential (primary) hypertension Category: Medical Qualifiers: Hypertension type: essential hypertension Qualified Code(s): I10 - Essential (primary) hypertension Plan: Continue with blood pressure medication. Decrease salt intake and exercise on lisinopril 10 mg once a day (3) Hypercholesterolemia: Code(s): E78.00 - Pure hypercholesterolemia, unspecified Category: Medical Plan: Avoid fried foods, chicken skin, eggs, butter margarine, pastries and meat. Be it pork or beef they have a lot of cholesterol LDL goal of less than 100 and triglyceride of less than 150. Patient on simvastatin 10 mg at bedtime (4) GERD (gastroesophageal reflux disease): Code(s): K21.9 - Gastro-esophageal reflux disease without esophagitis Category: Medical Qualifiers: Esophagitis presence: without esophagitis Qualified Code(s): K21.9 - Gastro-esophageal reflux disease without esophagitis Plan: Avoid the foods that causes that usually spicy foods, tomato products, juices, coffee, soda and foods that your sensitive to. After eating do not lie down, allow 3-4 hours before in lie down. And keep the head of bed above 30 degrees to avoid the acid from going up. (5) Overweight (BMI 25.0-29.9): Code(s): E66.3 - Overweight Category: Medical Plan: Continue with diet and exercise Plan History of Present Illness The patient is a 74-year-old female presenting for follow-up regarding her diabetes mellitus, GERD, hypertension, and hypercholesterolemia. She has recently experienced a weight loss of 9 pounds. Recent lab work shows stable kidney and liver function, with a hemoglobin A1c improved to 6.1% from a prior higher value. Her blood glucose is at 128 mg/dL, which is slightly elevated above normal fasting levels. Cholesterol management is a concern due to historical elevation, currently at 109 mg/dL, with a target goal of below 100 mg/dL. The patient continues on her medication regimen including lisinopril and simvastatin and is managing reflux with dietary adjustments and exercise. Additionally, she is confirmed to be up to date with her eye examinations. Health Maintenance - Colonoscopy completed in September 2022 - Mammogram completed in December 2023 - Bone density test completed in April 2022 - Diabetes plan with hemoglobin A1c goal of less than 7.0% - Dietary control and exercise for reflux management Social History - Lives with sister, influencing dietary intake and exercise - Active communication with family regarding diabetes management - Regular physical activity including walking 35-40 minutes twice daily reported in past Review of Systems - Endocrine: Reports weight loss - Cardiovascular: Denies chest pain - Gastrointestinal: Denies current reflux symptoms with management - Metabolic: Reports improved blood sugar control Physical Exam Results - Labs: Normal complete blood count, normal electrolytes, normal renal function - Labs: Blood glucose 128 mg/dL, hemoglobin A1c 6.1% - Labs: Elevated cholesterol at 109 mg/dL - Labs: Stable liver function Plan 1. 1%. Management of hypercholesterolemia is progressing, but there is consideration for a potential increase in simvastatin if LDL goals are not met with diet and exercise. Hypertension continues to be managed with lisinopril 10 mg. A follow-up for cholesterol testing is planned in three months. Her reflux diet and exercise plan remain effective and should be adhered to. Continued collaboration with family and monitoring of lifestyle factors that impact her health is essential.: Patient was informed and verbally consented to the use of an ambient scribe for clinic note documentation during this visit. Discussion Notes I discussed with the patient the importance of maintaining her current diabetes management plan to keep her hemoglobin A1c below 7.0%. We reviewed the benefits of achieving better cholesterol control and explored potential adjustments in her medication regimen. We decided to wait for the next three months to retest her cholesterol before deciding on any changes to her medications. I encouraged her to continue her current lifestyle practices, including diet and exercise for GERD management. We also discussed the importance of continued compliance with her medications for hypertension. Future tests will include fasting blood work for accurate re-evaluation of her glucose and cholesterol levels. Patient Instructions - Continue current diabetes management and track blood sugar levels - Maintain dietary and exercise regimen for GERD - Follow as prescribed with lisinopril and simvastatin - Schedule cholesterol and glucose testing in three months - Report any new symptoms or changes in condition to your healthcare provider Orders: Orders Lipid Panel 3 Months E78.00 - Pure hypercholesterolemia, unspecified Comprehensive Met. Panel 3 Months E78.00 - Pure hypercholesterolemia, unspecified Hemoglobin A1c 3 Months E78.00 - Pure hypercholesterolemia, unspecified
== END 2024-08-07 10:23 | disposition home or self-care (01) ==
LOC: HO.HMCH 09:55
PROVIDERS: PCP Internal Medicine; Visit Provider Internal Medicine
DX: E11.65 Type 2 diabetes mellitus with hyperglycemia (principal); I10 Essential (primary) hypertension; E78.00 Pure hypercholesterolemia, unspecified; K21.9 Gastro-esophageal reflux disease without esophagitis; E66.3 Overweight

== ENCOUNTER → 2024-08-07 09:54 | Outpatient (BNVA) | payer OTHER, SELFPAY | PROVIDERS: PCP Internal Medicine; Visit Provider Internal Medicine | DX: E11.65 Type 2 diabetes mellitus with hyperglycemia (principal); I10 Essential (primary) hypertension; E78.00 Pure hypercholesterolemia, unspecified; K21.9 Gastro-esophageal reflux disease without esophagitis; E66.3 Overweight; Z68.29 Body mass index [BMI] 29.0-29.9, adult; Z79.899 Other long term (current) drug therapy | CPT/HCPCS: 99212 ==

== ENCOUNTER 2024-10-24 07:00 | Outpatient (REF) | payer OTHER, SELFPAY ==
[2024-10-24 07:58] LABS: Hemoglobin A1C 159.4129 umol/L; Total Hemoglobin (HGBA1C) 3548.4811 umol/L
[2024-10-24 08:19] LABS: Alanine Aminotransferase 23 U/L (0-31); Albumin Level 4.5 g/dL (3.5-5.0); Alkaline Phosphatase 82 U/L (39-117); Anion Gap 12 (12-20); Aspartate Amino Transferase 27 U/L (5-31); Blood Urea Nitrogen 15 mg/dL (9-16); Calcium 9.2 mg/dL (8.4-10.2); Carbon Dioxide 29 mmol/L (22-29); Chloride 105 mmol/L (96-108); Cholesterol 203 mg/dL (<200); Estimated Glomerular Filt Rate > 60; HDL Cholesterol 63 mg/dL (>40); Potassium 3.9 mmol/L (3.3-5.1); Sodium 142 mmol/L (135-145); Total Protein 7.4 g/dL (6.5-8.0); Triglycerides 90 mg/dL (<150)
== END 2024-10-24 07:01 | disposition home or self-care (01) ==
LOC: HO.LAB 07:00
PROVIDERS: PCP Internal Medicine; Visit Provider Internal Medicine
DX: E78.00 Pure hypercholesterolemia, unspecified (principal); Z13.1 Encounter for screening for diabetes mellitus
CPT/HCPCS: 36415; 80053; 80061; 83036

== ENCOUNTER 2024-12-10 09:56 | Outpatient (AMB) | payer OTHER, SELFPAY ==
[2024-12-10 09:58] VITALS: BP 130/72; PULSE 72; O2SAT 97; BMI 30.2
--- NOTE | 2024-12-10 09:58 | A.OFFPC_ITS ---
Vital Signs 12/10/24 09:58 Height 5 ft 6 in Weight 187 lb BMI 30.2 BP 130/72 Blood Pressure Location Lt brachial Position Sitting Pulse 72 Pulse Source Pulse Oximeter Pulse Oximetry (%) 97 Oxygen Delivery Method Room Air Intake Visit Reasons: DM, update HCP form- A1C Allergies No Known Allergies Allergy (Verified 12/10/24 09:59) Medication List - Last Reconciled 12/10/24 by Andrea Luna MD ascorbate calcium (vitamin C) 500 mg PO DAILY aspirin (Adult Aspirin Regimen) 81 mg PO DAILY baclofen 10 mg PO TID PRN [Bathroom grab bar As directed] blood pressure monitor (Blood Pressure Kit) As directed blood sugar diagnostic (FreeStyle Lite Strips) As directed check the BS QD blood-glucose meter (FreeStyle Lite Meter kit) As directed docusate sodium (Colace) 200 mg (2 x 100 mg) PO BEDTIME lancets (FreeStyle Lancets) As directed check BS QD lisinopril 10 mg PO DAILY 30 days methylcellulose (laxative) (Citrucel) 500 mg PO TID multivitamin (One-A-Day Essential tablet) 1 tab PO DAILY omeprazole 20 mg PO DAILY polyethylene glycol 3350 (Miralax) 17 grams PO DAILY simvastatin 10 mg PO BEDTIME 30 days Tobacco use date assessed: 04/30/24 Fall risk assessment: No Falls in past year Last assessed Fall Risk: 12/10/24 Dental Screening Dental Screen Date: 04/30/24 [facility] Medical History (Updated 08/07/24 @ 10:11 by Andrea Luna MD) Impaired glucose tolerance Colon cancer screening (~10/09/22) Encounter for removal of [facility] discharge follow-up Right shoulder pain Migraine Hypertension Hypercholesterolemia Obesity (BMI 30-39.9) Allergic rhinitis Fatty liver GERD (gastroesophageal reflux disease) Left shoulder tendinitis Surgical History Hx of varicose vein ligation Hx of colonoscopy Family History Mother No problems noted. Father No problems noted. Other Substance use Social History Housing: Apartment Alcohol intake: never Patient Tobacco Use Status: Never used Tobacco Tobacco use type: Cigarette e-Cigarette/Vaping Use: Never Used Second Hand Smoke Exposure: No service: No Current occupational status: unemployed Cognitive needs: No Hearing needs: No Vision needs: Yes Questionnaire Thrive Questionnaire Date Thrive assessed: 04/30/24 I am a: Patient What is your living situation today?: I have a steady place to live Within the past 12 months, did the food you bought not last and you didn't have the money to get more?: Never true Within the past 12 months, did you worry whether your food would run out before you got money to buy more?: Never true Do you have trouble paying for medicines?: No Do you have trouble getting transportation to medical appointments?: No Do you have trouble paying your heating and electricity bill?: No Do you have trouble taking care of your child, family member or friend?: No Do you have trouble with day-to-day activities such as bathing, preparing meals, shopping, managing finances, etc.?: No Are you currently unemployed and looking for a job?: No Are you interested in more education?: No Please select the resources that you would like help with: None Currently or been in a relationship where the following occur: No concerns reported THRIVE Score: 0 MARSHALL-7 AMB Questionnaire MARSHALL-7 Date MARSHALL - 7 assessed: 04/30/24 Source: Developed by Drs. Alfredito Reardon, Rosetta Adams, Byron Billy and colleagues, with an educational marquita from [employer]. Physical exam (Primary Care) Vital Signs: Last Vital Signs Pulse 72 12/10/24 09:58 BP 130/72 12/10/24 09:58 Pulse Ox 97 12/10/24 09:58 Oxygen Delivery Method Room Air 12/10/24 09:58 BMI result Body Mass Index 30.2 Tobacco/Smoking Status: Tobacco use Status Tobacco use date assessed 04/30/24 12/10/24 10:01 Patient Tobacco Use Status Never used Tobacco 12/10/24 10:01 Tobacco use type Cigarette 12/10/24 10:01 e-Cigarette/Vaping Use Never Used 12/10/24 10:01 Thrive Assessment: Date of Thrive Assessment Date Thrive assessed 04/30/24 12/10/24 10:01 Currently or been in a relationship where the following occur: No concerns reported Const General: alert; No acute distress Eyes Conjunctivae: conjunctivae normal Resp Auscultation: clear to auscultation bilaterally Cardio Rate: regular rate Rhythm: regular rhythm GI Inspection: Yes normal to inspection Extrem General: Yes normal to inspection and No edema Coding Level of Care Code Est Pt Level 4 (14413) Complex EM visit Add On G2211 Diagnoses Type 2 diabetes mellitus with hyperglycemia, without long-term current use of insulin E11.65 Diabetes mellitus halfway insulin use: without halfway use Essential hypertension I10 Hypertension type: essential hypertension Hypercholesterolemia E78.00 Obesity (BMI 30-39.9) E66.9 Gastroesophageal reflux disease without esophagitis K21.9 Esophagitis presence: without esophagitis Assessment & Plan Assessment & Plan (1) Type 2 diabetes mellitus with hyperglycemia: Comment: eye and lasik Code(s): E11.65 - Type 2 diabetes mellitus with hyperglycemia Category: Medical Qualifiers: Diabetes mellitus halfway insulin use: without halfway use Qualified Code(s): E11.65 - Type 2 diabetes mellitus with hyperglycemia Plan: Decrease the amount of carbohydrate intake, pasta, bread, rice and potatoes are all sugar and that is aside from all the sweet stuff, remember that fruits are good but they are Sweet also. Hemoglobin A1c goal of less than 7.0. Patient is presently diet controlled (2) Hypertension: Code(s): I10 - Essential (primary) hypertension Category: Medical Qualifiers: Hypertension type: essential hypertension Qualified Code(s): I10 - Essential (primary) hypertension Plan: Continue with blood pressure medication. Decrease salt intake and exercise patient takes lisinopril 10 mg once a day (3) Hypercholesterolemia: Code(s): E78.00 - Pure hypercholesterolemia, unspecified Category: Medical Plan: Avoid fried foods, chicken skin, eggs, butter margarine, pastries and meat. Be it pork or beef they have a lot of cholesterol LDL goal of less than 100 and triglyceride of less than 150 on simvastatin 10 mg at bedtime (4) Obesity (BMI 30-39.9): Code(s): E66.9 - Obesity, unspecified Category: Medical Plan: Diet and exercise (5) GERD (gastroesophageal reflux disease): Code(s): K21.9 - Gastro-esophageal reflux disease without esophagitis Category: Medical Qualifiers: Esophagitis presence: without esophagitis Qualified Code(s): K21.9 - Gastro-esophageal reflux disease without esophagitis Plan: Avoid the foods that causes that usually spicy foods, tomato products, juices, coffee, soda and foods that your sensitive to. After eating do not lie down, allow 3-4 hours before in lie down. And keep the head of bed above 30 degrees to avoid the acid from going up. Plan History of Present Illness The patient is a 74-year-old female presenting for a follow-up visit. She has a history of diabetes mellitus, which is currently diet-controlled with a hemoglobin A1c of 6.3, slightly higher than before. Her blood sugar levels are maintained within the normal range, with a fasting blood sugar of 91 mg/dL. The patient also has hypertension, managed with lisinopril 10 mg daily. Hypercholesterolemia is another concern, with an LDL level of 122 mg/dL, which is above the target for diabetics. She is currently on simvastatin 10 mg, but adjustments are being considered due to the elevated cholesterol levels. The patient has a history of gastroesophageal reflux disease (GERD), managed with omeprazole 20 mg. Preventative care measures include a colonoscopy in September 2022, a mammogram in December 2023, and a bone density test in April 2022, which was normal. Health Maintenance - Colonoscopy in September 2022 - Mammogram in December 2023 - Bone density test in April 2022, results were normal - Flu shot recommended in December - Shingles vaccination completed Social History - Exercise: Patient walks daily and is encouraged to increase activity. - Diet: Patient is advised to avoid high-cholesterol foods and focus on a balanced diet. Review of Systems Physical Exam Results - Labs: Hemoglobin A1c is 6.3, fasting blood sugar is 91 mg/dL, LDL cholesterol is 122 mg/dL, total cholesterol is 203 mg/dL. - Tests: Bone density test in April 2022 was normal. Plan Patient was informed and verbally consented to the use of an ambient scribe for clinic note documentation during this visit. 1. Diabetes Mellitus The patient's diabetes is currently diet-controlled with a hemoglobin A1c of 6.3, which is slightly higher than before. The goal is to maintain the A1c below 7.0, and the patient is advised to continue monitoring her diet and exercise. 2. Hypertension Hypertension is managed with lisinopril 10 mg daily. 3. Hypercholesterolemia The patient's LDL cholesterol is 122 mg/dL, which is above the target for diabetics. The plan includes increasing the simvastatin dose from 10 mg to 20 mg and re-evaluating in three months. 4. Gastroesophageal Reflux Disease (Gerd) GERD is managed with omeprazole 20 mg daily. Discussion Notes During the visit, we discussed the management of the patient's diabetes, emphasizing the importance of diet and exercise to maintain her hemoglobin A1c below 7.0. For hypercholesterolemia, we plan to increase the simvastatin dose and re-evaluate in three months. We also reviewed the patient's hypertension management with lisinopril and GERD management with omeprazole. Patient Instructions - Continue current diet and exercise regimen to manage diabetes. - Increase simvastatin dose to 20 mg as prescribed. - Schedule follow-up blood work in three months to reassess cholesterol levels. - Continue taking lisinopril and omeprazole as prescribed. - Avoid high-cholesterol foods and focus on a balanced diet. - Consider getting a flu shot in December and ensure shingles vaccination is up to date. Orders: Orders Complete Blood Count Auto Diff 3 Months E78.00 - Pure hypercholesterolemia, unspecified Comprehensive Met. Panel 3 Months E78.00 - Pure hypercholesterolemia, unspecified Creatinine Urine 3 Months E11.65 - Type 2 diabetes mellitus with hyperglycemia, E78.00 - Pure hypercholesterolemia, unspecified Microalbumin, Random (w Creat) 3 Months E11.65 - Type 2 diabetes mellitus with hyperglycemia, E78.00 - Pure hypercholesterolemia, unspecified Free T4 (Free Thyroxine) 3 Months E78.00 - Pure hypercholesterolemia, unspecified Hemoglobin A1c 3 Months E78.00 - Pure hypercholesterolemia, unspecified UA CC w/rflx Micro + Cult 3 Months E78.00 - Pure hypercholesterolemia, unspecified, R30.0 - Dysuria Thyroid Stimulating Hormone 3 Months E78.00 - Pure hypercholesterolemia, unspecified Lipid Panel 3 Months E78.00 - Pure hypercholesterolemia, unspecified Vitamin B12 and Folate 3 Months E78.00 - Pure hypercholesterolemia, unspecified Vitamin D 25-OH Total 3 Months E78.00 - Pure hypercholesterolemia, unspecified Medications: Changed From simvastatin 10 mg PO BEDTIME 30 days 90 tabs 2RF E78.00 - Pure hypercholesterolemia, unspecified To simvastatin 20 mg PO BEDTIME 90 tabs 3RF 90 days E78.00 - Pure hypercholesterolemia, unspecified
== END 2024-12-10 10:54 | disposition home or self-care (01) ==
LOC: HO.HMCH 09:57
PROVIDERS: PCP Internal Medicine; Visit Provider Internal Medicine
DX: E11.65 Type 2 diabetes mellitus with hyperglycemia (principal); I10 Essential (primary) hypertension; E66.9 Obesity, unspecified; Z68.30 Body mass index [BMI] 30.0-30.9, adult; E78.00 Pure hypercholesterolemia, unspecified; K21.9 Gastro-esophageal reflux disease without esophagitis

== ENCOUNTER → 2024-12-10 09:56 | Outpatient (BNVA) | payer OTHER, SELFPAY | PROVIDERS: PCP Internal Medicine; Visit Provider Internal Medicine | DX: E11.65 Type 2 diabetes mellitus with hyperglycemia (principal); I10 Essential (primary) hypertension; E78.00 Pure hypercholesterolemia, unspecified; E66.9 Obesity, unspecified; Z68.30 Body mass index [BMI] 30.0-30.9, adult; K21.9 Gastro-esophageal reflux disease without esophagitis; Z79.899 Other long term (current) drug therapy | CPT/HCPCS: 99212 ==

== ENCOUNTER 2025-01-28 11:27 | Outpatient (REF) | payer OTHER, SELFPAY | END 2025-01-28 11:28 | disposition home or self-care (01) | LOC: HO.MAMMO 11:27 | PROVIDERS: PCP Internal Medicine; Visit Provider Internal Medicine | DX: Z12.31 Encounter for screening mammogram for malignant neoplasm of breast (principal) | CPT/HCPCS: 77063; 77067 ==

== ENCOUNTER → 2025-01-28 12:00 | Outpatient (BNV) | payer OTHER, SELFPAY | PROVIDERS: PCP Internal Medicine; Visit Provider Internal Medicine | DX: Z12.31 Encounter for screening mammogram for malignant neoplasm of breast (principal) | CPT/HCPCS: 77063; 77067 ==